=== PATIENT | female | born 1930 | race Caucasian/White ===

== ENCOUNTER 2017-11-10 13:55 | Inpatient (IN) | payer MEDICARE ==
[~2017-11-10] VITALS: Ht 160 cm; Wt 86.9 kg
[~2017-11-10 13:55] MED LIST: DOCU1CAP39 PO; HYDR-3516 PO; MAGN30S PO; WALKER WHEELS/F1 MIS
[2017-11-10 14:28] VITALS: BP 154/69; PULSE 75; RESP 18; TEMP 97.1; O2SAT 98
[2017-11-10 17:13] LABS: AUTOMATED NEUTROPHIL # 7.6 TH/MM3 (1.8-7.7); BASOPHIL # 0.1 TH/MM3 (0-0.2); BASOPHIL % 0.6 % (0.0-2.0); EOSINOPHIL # 0.3 TH/MM3 (0-0.4); EOSINOPHIL % 2.5 % (0.0-4.0); HEMATOCRIT 43.4 % (35.0-46.0); HEMOGLOBIN 14.4 GM/DL (11.6-15.3); LYMPHOCYTE # 3.4 TH/MM3 (1.0-4.8); MEAN CELL VOLUME 95.1 FL (80.0-100.0); MEAN CORPUSCULAR HEMOGLOBIN 31.5 PG (27.0-34.0); MEAN CORPUSCULAR HGB CONC 33.1 % (32.0-36.0); MEAN PLATELET VOLUME 9.7 FL (7.0-11.0); MONO % 9.7 % (0.0-8.0); MONOCYTE # 1.2 TH/MM3 (0-0.9); NEUT % 60.2 % (16.0-70.0); PLATELET COUNT 354 TH/MM3 (150-450); RED BLOOD COUNT 4.56 MIL/MM3 (4.00-5.30); RED CELL DISTRIBUTION WIDTH 15.5 % (11.6-17.2); WHITE BLOOD COUNT 12.6 TH/MM3 (4.0-11.0)
[2017-11-10 18:01] LABS: ALBUMIN 3.8 GM/DL (3.4-5.0); ALKALINE PHOSPHATASE 105 U/L (45-117); ALT (GPT) 35 U/L (10-53); AST (GOT) 65 U/L (15-37); BICARBONATE 29.8 MEQ/L (21.0-32.0); BLOOD UREA NITROGEN 39 MG/DL (7-18); CALCIUM 9.8 MG/DL (8.5-10.1); CHLORIDE 89 MEQ/L (98-107); CREATININE 1.92 MG/DL (0.50-1.00); GLOMERULAR FILTRATION RATE 25 ML/MIN (>89); GLUCOSE,RANDOM 162 MG/DL (74-106); SODIUM (NA) 133 MEQ/L (136-145); TOTAL BILIRUBIN ADULT 0.3 MG/DL (0.2-1.0); TOTAL PROTEIN 8.5 GM/DL (6.4-8.2)
[2017-11-10 18:46] VITALS: BP 173/76; PULSE 79; RESP 22; O2SAT 99
[2017-11-10 18:49] VITALS: O2SAT 98
[2017-11-10] MEDS ORDERED: ALUMINUM/MAGNESIUM/SIMETH 30 ML CUP PO ONE (19:00)
[2017-11-10] MEDS ORDERED: FAMOTIDINE 20 MG TAB PO ONE (19:00)
--- NOTE | 2017-11-10 19:20 | RADRPT ---
EXAM DATE/TIME: 11/10/2017 19:07 [place] COMPARISON: CHEST SINGLE AP, October 14, 2017, 11:52. INDICATIONS : Short of breath. MEDICAL HISTORY : None. SURGICAL HISTORY : None. ENCOUNTER: Initial ACUITY: 1 day PAIN SCORE: 0/10 LOCATION: Bilateral chest FINDINGS: A single view of the chest demonstrates the lungs to be symmetrically aerated without evidence of mas s, infiltrate or effusion. The cardiomediastinal contours are unremarkable. Osseous structures are intact. CONCLUSION: No acute disease. Juan Carlos Torres MD on November 10, 2017 at 19:18 Board Certified Radiologist. This report was verified electronically.
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
[2017-11-10] MEDS ORDERED: RANI150T PO (19:34)
[2017-11-10] MEDS ORDERED: POTA-163 PO (19:34)
[2017-11-10] MEDS ORDERED: ONDA4TAB7 SL (19:34)
[2017-11-10] MEDS ORDERED: SODIUM CHLOR 0.9% 1000 ML INJ 1,000 ML IV SCH ×2 (19:45→21:10)
[2017-11-10] MEDS ORDERED: POTASSIUM CHLORIDE 25 MEQ EFFERVESCENT TAB PO ONE (19:45)
[2017-11-10] MEDS ORDERED: POTASSIUM CHLOR 20 MEQ PREMIX 100 ML IV SCH (19:45)
[2017-11-10 20:00] VITALS: BP 174/72; PULSE 80; RESP 20; TEMP 97.2; O2SAT 95
[2017-11-10 20:56] LABS: TROPONIN I 0.96 NG/ML (0.02-0.05)
[2017-11-10] MEDS ORDERED: MAGNESIUM HYDROXIDE SUSP 30 ML CUP PO PRN (21:15)
[2017-11-10] MEDS ORDERED: NALOXONE HCL 0.4 MG/ML AMP IV PUSH PRN (21:15)
[2017-11-10] MEDS ORDERED: BISACODYL 10 MG SUPP RECTAL PRN (21:15)
[2017-11-10] MEDS ORDERED: ACETAMINOPHEN 325 MG TAB PO PRN (21:15)
[2017-11-10] MEDS ORDERED: SODIUM CHLORIDE 0.9% FLUSH 10 ML FLUSH IV FLUSH PRN (21:15)
[2017-11-10] MEDS ORDERED: LACTULOSE SYRUP 20 GM/30 ML CUP PO PRN (21:15)
[2017-11-10] MEDS ORDERED: SENNOSIDES 8.6 MG TAB PO PRN (21:15)
[2017-11-10] MEDS ORDERED: HEPARIN SODIUM - IV 10,000 UNITS/10 ML VIAL IV PUSH ONE (21:15)
[2017-11-10] MEDS ORDERED: ASPIRIN 325 MG TAB PO SCH (21:15)
[2017-11-10] MEDS ORDERED: HEPARIN-D5W 25,000 U/250 ML 250 ML IV PRN (21:15)
--- NOTE | 2017-11-10 21:25 | HHI.HP ---
[facility] Service [facility] Primary Care Physician Jen Hernandez MD Admission Diagnosis Syncope; Hypokalemia; EKG Abnormality Diagnoses: Travel History International Travel<30 Days: No Contact w/Intl Traveler <30 Da: No Traveled to Known Affected Are: No History of Present Illness 87-year-old female with no significant past medical history presents to the emergency department for evaluation of severe nausea and vomiting. The patient reports that she has had nausea for the past 3 months. She denies any associated abdominal pain. Endorses a nonbloody nonbilious emesis 3 over the past 2 days. She states that she has only been able to eat cheese and crackers and tea. She denies any chest pain or shortness of breath. No fever/chills. No diarrhea. No lateralizing signs/symptoms. Patient reports she takes no medication on a daily basis and has no past medical problems. Review of Systems Except as stated in HPI: all other systems reviewed are Neg Past Family Social History Past Medical History None Past Surgical History Cholecystectomy Reported Medications Reported Meds & Active Scripts Active Potassium Chloride ER (Potassium Chloride) 20 Meq Tab 20 Meq PO BID 7 Days Ranitidine (Ranitidine HCl) 150 Mg Tab 150 Mg PO BID Ondansetron Odt 4 Mg Tab 4 Mg SL Q8HR PRN Allergies: Coded Allergies: codeine (Verified Allergy, Severe, 11/10/17) "just don't aggree with me" Family History Patient does not know Social History Denies alcohol, tobacco and illicit drugs Physical Exam Vital Signs Vital Signs Date Time Temp Pulse Resp B/P (MAP) Pulse Ox O2 Delivery O2 Flow Rate FiO2 11/10/17 18:49 98 Room Air 11/10/17 18:46 79 22 173/76 (108) 99 Room Air 11/10/17 14:28 97.1 75 18 154/69 (97) 98 Physical Exam GENERAL: female sitting up in bed SKIN: No rashes, ecchymoses or lesions. Cool and dry. HEAD: Atraumatic. Normocephalic. No temporal or scalp tenderness. EYES: Pupils equal round and reactive. Extraocular motions intact. No scleral icterus. No injection or drainage. ENT: Nose without bleeding, purulent drainage or septal hematoma. Throat without erythema, tonsillar hypertrophy or exudate. Uvula midline. Airway patent. NECK: Trachea midline. No JVD or lymphadenopathy. Supple, nontender, no meningeal signs. CARDIOVASCULAR: Regular rate and rhythm without murmurs, gallops, or rubs. RESPIRATORY: Clear to auscultation. Breath sounds equal bilaterally. No wheezes , rales, or rhonchi. GASTROINTESTINAL: Abdomen soft, non-tender, nondistended. No hepato-splenomegaly , or palpable masses. No guarding. MUSCULOSKELETAL: Extremities without clubbing, cyanosis, or edema. No joint tenderness, effusion, or edema noted. No calf tenderness. NEUROLOGICAL: Awake and alert. Cranial nerves II through XII intact. Motor and sensory grossly within normal limits. Normal speech. Laboratory Laboratory Tests Test 11/10/17 15:52 11/10/17 20:06 White Blood Count 12.6 Red Blood Count 4.56 Hemoglobin 14.4 Hematocrit 43.4 Mean Corpuscular Volume 95.1 Mean Corpuscular Hemoglobin 31.5 Mean Corpuscular Hemoglobin Concent 33.1 Red Cell Distribution Width 15.5 Platelet Count 354 Mean Platelet Volume 9.7 Neutrophils (%) (Auto) 60.2 Lymphocytes (%) (Auto) 27.0 Monocytes (%) (Auto) 9.7 Eosinophils (%) (Auto) 2.5 Basophils (%) (Auto) 0.6 Neutrophils # (Auto) 7.6 Lymphocytes # (Auto) 3.4 Monocytes # (Auto) 1.2 Eosinophils # (Auto) 0.3 Basophils # (Auto) 0.1 CBC Comment DIFF FINAL Differential Comment Blood Urea Nitrogen 39 Creatinine 1.92 Random Glucose 162 Total Protein 8.5 Albumin 3.8 Calcium Level 9.8 Alkaline Phosphatase 105 Aspartate Amino Transf (AST/SGOT) 65 Alanine Aminotransferase (ALT/SGPT) 35 Total Bilirubin 0.3 Sodium Level 133 Potassium Level 2.9 Chloride Level 89 Carbon Dioxide Level 29.8 Anion Gap 14 Estimat Glomerular Filtration Rate 25 Lipase 188 Magnesium Level 2.0 Troponin I 0.96 Result Diagram: 11/10/17 1552 11/10/172 Caprini VTE Risk Assessment Caprini VTE Risk Assessment: Mod/High Risk (score >= 2) Caprini Risk Assessment Model Point Value = 1 Point Value = 2 Point Value = 3 Point Value = 5 Age 41-60 Minor surgery BMI > 25 kg/m2 Swollen legs Varicose veins or History of unexplained or recurrent spontaneous Oral contraceptives or hormone replacement Sepsis (< 1 month) Serious lung disease, including pneumonia (< 1 month) Abnormal pulmonary function Acute myocardial infarction Congestive heart failure (< 1 month) History of inflammatory bowel disease Medical patient at bed rest Age 61-74 Arthroscopic surgery Major open surgery (> 45 min) Laparoscopic surgery (> 45 min) Malignancy Confined to bed (> 72 hours) Immobilizing plaster cast Central venous access Age >= 75 History of VTE Family history of VTE Factor V Leiden Prothrombin [id number] Lupus anticoagulant Anticardiolipin antibodies Elevated serum homocysteine Heparin-induced thrombocytopenia Other congenital or acquired thrombophilia Stroke (< 1 month) Elective arthroplasty Hip, pelvis, or leg fracture Acute spinal cord injury (< 1 month) Prophylaxis Regimen Total Risk Factor Score Risk Level Prophylaxis Regimen 0-1 Low Early ambulation 2 Moderate Order ONE of the following: *Sequential Compression Device (SCD) *Heparin 5000 units SQ BID 3-4 Higher Order ONE of the following medications: *Heparin 5000 units SQ TID *Enoxaparin/Lovenox 40 mg SQ daily (WT < 150 kg, CrCl > 30 mL/min) *Enoxaparin/Lovenox 30 mg SQ daily (WT < 150 kg, CrCl > 10-29 mL/min) *Enoxaparin/Lovenox 30 mg SQ BID (WT < 150 kg, CrCl > 30 mL/min) AND/OR *Sequential Compression Device (SCD) 5 or more Highest Order ONE of the following medications: *Heparin 5000 units SQ TID (Preferred with Epidurals) *Enoxaparin/Lovenox 40 mg SQ daily (WT < 150 kg, CrCl > 30 mL/min) *Enoxaparin/Lovenox 30 mg SQ daily (WT < 150 kg, CrCl > 10-29 mL/min) *Enoxaparin/Lovenox 30 mg SQ BID (WT < 150 kg, CrCl > 30 mL/min) AND *Sequential Compression Device (SCD) Assessment and Plan Assessment and Plan Assessment/plan: 1. NSTEMI Initial troponin 0.96 EKG shows normal sinus rhythm, pulse 77, with T-wave inversion in leads I-II and V2-V6, ST segment elevations or depressions Serial troponin/EKGs Heparin drip Cardiology consulted, appreciate recommendations Patient denies any chest pain or associated shortness of breath 2. Nausea/vomiting May be atypical chest pain presentation Zofran Consider CT of the abdomen/pelvis if symptoms do not improve 3. MARY ANN BUN/creatinine 39/1.92 Baseline 0.87 on 10/16/17 May be secondary to decreased by mouth intake IV fluids Monitor renal function 4. Hypokalemia Potassium 2.9 Status post by mouth and IV replacement Follow-up BMP FEN NPO NS + 20 K at 100 cc/hr Electrolytes: As above Heparin drip Physician Certification 2 Midnight Certification Type: Admission for Inpatient Services Order for Inpatient Services The services are ordered in accordance with Medicare regulations or non- Medicare payer requirements, as applicable. In the case of services not specified as inpatient-only, they are appropriately provided as inpatient services in accordance with the 2-midnight benchmark. Estimated LOS (days): 2 2 days is the estimated time the patient will need to remain in the hospital, assuming treatment plan goals are met and no additional complications. Post-Hospital Plan: Not yet determined Marva Fernandes MD Nov 10, 2017 21:25
[2017-11-11] VITALS (12 sets, daily range): BP systolic 142–172; BP diastolic 65–80; PULSE 67–102; RESP 18–20; TEMP 96.3–98.5; O2SAT 92–98
[2017-11-11] MEDS: NS + KCL 20 MEQ INJ 1,000 ML IV SCH ×3 (00:10→18:40)
[2017-11-11 03:03] LABS: AUTOMATED NEUTROPHIL # 5.2 TH/MM3 (1.8-7.7); BASOPHIL % 0.4 % (0.0-2.0); EOSINOPHIL # 0.3 TH/MM3 (0-0.4); EOSINOPHIL % 3.4 % (0.0-4.0); HEMATOCRIT 37.9 % (35.0-46.0); HEMOGLOBIN 12.8 GM/DL (11.6-15.3); LYMPH % 34.9 % (9.0-44.0); LYMPHOCYTE # 3.4 TH/MM3 (1.0-4.8); MEAN CELL VOLUME 92.2 FL (80.0-100.0); MEAN CORPUSCULAR HEMOGLOBIN 31.2 PG (27.0-34.0); MEAN CORPUSCULAR HGB CONC 33.8 % (32.0-36.0); MEAN PLATELET VOLUME 8.5 FL (7.0-11.0); MONO % 8.2 % (0.0-8.0); MONOCYTE # 0.8 TH/MM3 (0-0.9); NEUT % 53.1 % (16.0-70.0); PLATELET COUNT 363 TH/MM3 (150-450); RED BLOOD COUNT 4.11 MIL/MM3 (4.00-5.30); RED CELL DISTRIBUTION WIDTH 15.1 % (11.6-17.2); WHITE BLOOD COUNT 9.8 TH/MM3 (4.0-11.0)
[2017-11-11 03:11] LABS: INTERNATIONAL NORMALIZED RATIO 1.1 RATIO; PROTHROMBIN TIME - PATIENT 10.7 SEC (9.8-11.6)
[2017-11-11] MEDS ORDERED: HEPARIN SODIUM - IV 10,000 UNITS/10 ML VIAL IV PUSH PRN ×2 (03:15)
[2017-11-11 03:33] LABS: TROPONIN I 0.8 NG/ML (0.02-0.05)
[2017-11-11 03:57] LABS: BICARBONATE 32.8 MEQ/L (21.0-32.0); CREATININE 1.23 MG/DL (0.50-1.00)
[2017-11-11] MEDS ORDERED: SODIUM CHLORIDE 0.9% FLUSH 10 ML FLUSH IV FLUSH SCH (09:00)
[2017-11-11 09:03] LABS: TROPONIN I 0.56 NG/ML (0.02-0.05)
[2017-11-11] MEDS: DOCUSATE SODIUM 50 MG/SENNA 8.6 MG TAB PO SCH ×2 (09:12→20:46)
[2017-11-11] MEDS ORDERED: HEPARIN-NS/PF FLUSH BAG 2,000 ML IV FLUSH ONE (12:31)
[2017-11-11] MEDS ORDERED: MIDAZOLAM HCL 2 MG/2 ML VIAL ONE (12:50)
[2017-11-11] MEDS ORDERED: HEPARIN SODIUM - IV 10,000 UNITS/10 ML VIAL ONE (13:09)
--- NOTE | 2017-11-11 13:17 | EKG ---
Date Performed: 11/10/2017 Time Performed: 19:37:06 PTAGE: 87 years EKG: Sinus rhythm MARKED ST-T WAVE ABNORMALITIES SUGGETIVE OF A CENTRAL NEUROLOGICAL EVENT OR NON ST SEGMENT ELEVATION MYOCARDIAL INFARCTION. ABNORMAL ECG Compared to PREVIOUS TRACING , these ST-T wave changes are new. Clinical correlation is needed. PREVI OUS TRACING 01/23/1997 23.00 DOCTOR: Roby Oconnell Interpretating Date/Time 11/11/2017 13:16:46
[2017-11-11] MEDS ORDERED: TIROFIBAN INFUSION INJ 0 ML IV ONE (13:23)
[2017-11-11] MEDS ORDERED: CLOPIDOGREL 300 MG TAB ONE ×2 (13:24→13:38)
--- NOTE | 2017-11-11 13:43 | CATHPROC ---
[employer] HIS Report Study Information Study Number Admission Scheduled Start Study Start [id number] Nov 10 2017 8:42PM 11/11/2017 Nov 11 2017 12:24PM [place] Service Cardiac Catheterization Admit Source Facility Department Emergency department [facility] - Lubrication Worker Physician and Clinical Staff Initial Alistair Hernandez Take Out Waiter Kristina Castillo BSN Take Out Waiter Kelsey Moreau,RN Recorder Renetta Rodriguez,RT(R) [place] [facility] RCIS(BS) Procedures Performed Procedure Location (Site) Vessel Name Coronary Angiograms RCA Right Coronary L Heart Cath LV Gram-hand inj. LV LV Ventricle Stent CIRC Dist CIRC Stent CIRC Mid CIRC Wire insertion Fem Art (right) Femoral Art Equipment Time Superintendent Generating Plant Description Size Mfg Part Number Used/Scraped [id number] 13:09 [employer]IPS [employer] WIRE, ASAHI PROWATER 180CM 180CM Used *[id number] 13:09 [employer]ILLIPS [employer] WIRE, ASAHI PROWATER 180CM 180CM Used *[id number] TRANSDUCER, TRUWAVE [id number] 13:00 MCWILLIAMS GLASER * Used W/STOCKCOCK *[id number] [id number] *[id number] 538-421 *[id number] [id number] *[id number] *[id number] *[id number] 13:00 Magix INDUSTRIES PACK, CCL CUSTOM * Used *[id number] 13:00 Magix PACER PEN, SKIN DUAL W/ RULER * Used *[id number] 13:23 MEDTRONIC STENT, 3.0 12 INTEGRITY 3.0 12 Used *[id number] 13:10 MEDTRONIC STENT, 3.5 12 INTEGRITY 3.5 12 Used *[id number] [id number] 13:21 [employer]Spot MEDICAL 30 ACOSTA INDEFLATOR Used *[id number] 13:10 [employer] MEDICAL SHEATH, FR6.5 PRELUDE 11CM FR 6.5 038ACT Used *[id number] 13:00 [employer] MEDICAL WIRE, 3MMJ .035 180CM 180CM Used *[id number] 13:00 NAMIC MANIFOLD, 4 PORT * Used *[id number] 13:00 NYCOMED OMNIPAQUE, 350 MG, 150ML 150ML [id number] Used [id number] 13:00 GHEENS MEDICAL BLANKET,WARM AIR CCL * Used *[id number] 13:00 TERUMO MEDICAL SHEATH, FR4 TERUMO (10CM) FR 4 Used *[id number] Equipment Model, Serial, Lot Number and Expiration Data Description Model Number Serial Number Lot Number Expiration Date STENT, 3.0 12 INTEGRITY [id number] 04-20-2019 STENT, 3.5 12 INTEGRITY [id number] 01-12-2018 History: Allergies Allergy Reaction codeine History: Risk Factors Family History of Hypertension Dyslipidemia Previous [place] Previous Heart Failure Premature CAD No No No No No Prior Valve Prior PCI Prior CABG Surgery No No No Cerebrovascular Peripheral Artery Chronic Lung On Dialysis Diabetes Disease Disease Disease No No No No No History: Symptoms/Diagnosis Selection Items Syncope History: Stress Tests Stress or Imaging Studies Performed No History: Other Current Smoker Method Quit Packs a Day Years Used Pack Years No Cigarettes 25 Years Ago 1 40 40 Labs Hgb (g/dl) Hct (%) WBC (l/cumm) Platelets (thousands) 11.60-17.00 35.00-51.00 4.00-11.00 150.00-450.00 12.8 37.9 9.8 363 Glucose (mg/dl) BUN (mg/dl) Creatinine (mg/dl) BUN:Creatinine (1:x) 74.00-106.00 7.00-18.00 0.50-1.30 10.00-20.00 147 33 1.2 27.5 Na (meq/l) K (meq/l) 136.00-145.00 3.50-5.10 139 3 INR (PTT:PT) 0.90-1.10 1.1 Troponin I (ng/ml) CPK (u/l) CPK-MB (ng/ML) 0.02-0.05 26.00-308.00 0.50-3.60 0.56 274 Not Drawn Medication Medication Total Dose (Bolus/Oral) Medication Total Dosage/Unit 1% XYLOCAINE 20 mL FENTANYL 62.5 mcg HEPARIN 5200 units PLAVIX 600 mg VERSED 1 mg Medications (Bolus/Oral) Medication Time Given Dosage/Unit Administered By Reason VERSED 11/11/2017 12:51:48 PM 1 mg Hesher, Kelsey 1 mg VERSED given in lab by Hesher, Kelsey, RN in Left Antecubital via Peripheral IV. Ordered by Alistair Evangelista. FENTANYL 11/11/2017 12:52:05 PM 25 mcg Kelsey Moreau 25 mcg FENTANYL given in lab by Kelsey Moreau RN in Left Antecubital via Peripheral IV. Ordered by Alistair Jacobs. 1% XYLOCAINE 11/11/2017 12:59:02 PM 20 mL Alistair Jacobs 20 mL 1% XYLOCAINE given in lab by Alistair Jacobs in Right Groin via Subcutaneous. Ordered by Alistair Stearns. FENTANYL 11/11/2017 1:07:43 PM 12.5 mcg [place] 12.5 mcg FENTANYL given in lab by Kelsey Moreau RN in Left Antecubital via Peripheral IV. Ordered Alistair Rizvi. HEPARIN 11/11/2017 1:10:27 PM 5200 units Kelsey Moreau 5200 units HEPARIN given in lab by Kelsey Moreau RN in Left Antecubital via Peripheral IV. Ordered by Alistair Jacobs. FENTANYL 11/11/2017 1:15:08 PM 12.5 mcg Prieto, Kelsey 12.5 mcg FENTANYL given in lab by Kelsey Moreau RN in Left Antecubital via Peripheral IV. Ordered Alistair Rizvi. FENTANYL 11/11/2017 1:26:40 PM 12.5 mcg Hesher, Kelsey 12.5 mcg FENTANYL given in lab by Kelsey Moreau RN in Left Antecubital via Peripheral IV. Ordered Alistair Rizvi. PLAVIX 11/11/2017 1:40:29 PM 600 mg Kelsey Moreau 600 mg PLAVIX given in lab by Kelsey Moreau, AILYN via Oral. Ordered by Alistair Jacobs. Medication (Drip) Medication Time Given Dosage/Unit Concentration/Unit Diluent (ml) Solution HEPARIN DRIP STOPPED 11/11/2017 12:35:07 PM 1000 units/hr 0 1000 units/hr HEPARIN DRIP STOPPED given by Kristina Castillo BSN in Left Antecubital via Peripher al IV. Pump/Drip Flow = 0 ml/hr using [Solution Name]. IV Solutions 11/11/2017 12:24:05 PM 50 mL (IV) NaCl .9 IV Solutions given in lab by Kristina Castillo BSN in Left Antecubital via Peripheral IV. Pump/Dri p Flow using NaCl .9. Initial Case Assessment Cardiovascular HR Rhythm NIBP Chest Pain 80 SR 178/71 0 Skin color Skin Normal Warm Dry Circulatory - Right Pulses Dorsalis Pedis Femoral 1 1 Scale (0,1,2,3,4,d) Circulatory - Left Pulses Dorsalis Pedis Femoral 1 1 Scale (0,1,2,3,4,d) Neurological State Oriented to time-place- Alert Moves all extremities person Respiration - General Respiration Rate SpO2 (%) (B/min) 19 98 Chronological Log Time Study Chronological Log 12:23:57 Patient arrived via Bed. 12:23:57 Patient Name, D.O.B, / Armband Verified By R.N. 12:23:58 Consent signed by the physician and the patient and verified by the Lubrication Worker staff. 12:23:58 Pre-op and post- op instructions given; patient acknowledges understanding of instructions . 12:23:59 Verbal Stimulation=2 Physical Stimulation=2 Airway=2 Respiration=2 TOTAL=8. (0=absent, 1=l imited, 2=present) 12:24:00 Presedation assessment performed by Lubrication Worker RN. 12:24:01 Immediate Presedation assesment performed by physician. 12:24:01 Patient has been NPO for More than 6Hrs. 12:24:02 Skin Breakdown- none per pt 12:24:03 Patient Warmer Placed on the Table. 12:24:03 Juarez Prominences Protected 12:24:05 A # 20 IV was noted in the Forearm (right). Grade = 0 12:24:05 A # 22 IV was noted in the Antecubital (left). Grade = 0 IV Solutions given in lab by Kristina Castillo BSN in Left Antecubital via Peripheral IV. P ump/Drip Flow using NaCl 12:24:05 .9. 12:24:06 History and physical on the chart or being dictated. 1000 units/hr HEPARIN DRIP STOPPED given by Kristina Castillo BSN in Left Antecubital via P eripheral IV. 12:35:07 Pump/Drip Flow = 0 ml/hr using [Solution Name]. 12:35:45 Reference ECG taken Vitals capture started with the following parameters, Patient=Adult, Interval=5 min, Initial Pr slpdqa=730 mmHg, 12:36:30 Deflation Rate=5 mmHg, Cuff placed on Unknown 12:38:05 HR=73 bpm, KSSE=845/71 mmhg, SpO2=98.0 %, Resp=8 B/min 12:40:54 Bilateral groins prepped with 2% chlorhexidine, and draped after a 3 minute waiting time. 12:41:18 MD paged 12:41:38 MD responded 12:42:32 Pressure channel 1 zeroed. 12:43:00 HR=74 bpm, RESI=914/74 mmhg, SpO2=98.0 %, Resp=9 B/min Assessment: Initial Case, HR=80 BPM, Rhythm=SR, DCCZ=653/71 mmhg, Chest Pain=0, Color=Normal, S kin = Warm, Dry Right Pulses: Nimesh Ped=1, Femoral=1 12:45:51 Left Pulses: Nimesh Ped=1, Femoral=1 Neurological: State=Alert, Ox3, GUZMAN Respiration: Resp=19 B/min, SpO2=98 % 12:47:32 HR=83 bpm, JKYZ=603/54 mmhg, SpO2=98.0 %, Resp=14 B/min 12:48:20 MD arrived. 12:51:48 1 mg VERSED given in lab by Kelsey Moreau, RN in Left Antecubital via Peripheral IV. Order ed by Alistair Jacobs. 25 mcg FENTANYL given in lab by Kelsey Moreau, RN in Left Antecubital via Peripheral IV. Order ed by Arlene, 12:52:05 Alistair. 12:53:18 HR=80 bpm, ZFDT=036/73 mmhg, SpO2=96.0 %, Resp=11 B/min Time Out. Correct patient, correct procedure, correct physician, power injector not loaded with contrast with surgical 12:57:42 team present. Time Out Concurred by MD and individual staff in procedure. 12:58:01 Case Start 12:58:09 HR=76 bpm, MOWB=670/73 mmhg, SpO2=98 %, Resp=8 B/min 20 mL 1% XYLOCAINE given in lab by Alistair Jacobs in Right Groin via Subcutaneous. Ordered by Arlene, 12:59:02 Alistair. 12:59:23 Access site was Right Femoral Artery. 12:59:45 A SHEATH, FR4 TERUMO (10CM) FR 4 was advanced into the Fem Art (right) using the Percutaneo us technique. 13:00:04 Activated Clotting Time Drawn A JR 4.0 INFINITI CATHETER FR 4 was advanced over a wire. OMNIPAQUE, 350 MG, 150ML 150ML was us ed for 13:00:19 injections. 13:02:20 An injection in the Iliac R. Com. (R4) was made through the SHEATH, FR4 TERUMO (10CM) FR 4. 13:02:21 HR=79 bpm, ISYA=821/82 mmhg, SpO2=96.0 %, Resp=12 B/min Recorded Pressure: Ao, HR=79, Condition=Condition 1 13:02:22 (Aorta) Ao 152/72/105 13::34 Catheter was removed A MPA-2 INFINITI CATHETER FR 4 was advanced over a wire. OMNIPAQUE, 350 MG, 150ML 150ML was use d for 13:03:41 injections. 13:04:00 ACT (Normal Range 90-180) = 158 After removing the current catheter a JR 4.0 INFINITI CATHETER FR 4 was advanced over a WIRE, 3 MMJ .035 180CM 13:04:00 180CM. Recorded Pressure: LV, HR=79, Condition=Condition 1 13:05:05 (Left Ventricle) LV 174/5/16 13:05:08 The LV was manually injected with 8 cc's and visualized. OMNIPAQUE, 350 MG, 150ML 150ML use d. 13:05:52 The RCA was injected and visualized at various angles. OMNIPAQUE, 350 MG, 150ML 150ML used . After removing the current catheter a JL 4.0 INFINITI CATHETER FR 4 was advanced over a WIRE, 3 MMJ .035 180CM 13:06:34 180CM. 13:07:22 HR=78 bpm, CWBW=251/80 mmhg, SpO2=97.0 %, Resp=9 B/min 12.5 mcg FENTANYL given in lab by Kelsey Moreau, RN in Left Antecubital via Peripheral IV. Ord ered by Arlene, 13:07:43 Alistair. 13:: Catheter was removed A SHEATH, FR6.5 PRELUDE 11CM FR 6.5 was exchanged in the Fem Art (right). This was necessary in order to 13:10:07 accomodate a larger catheter. 5200 units HEPARIN given in lab by Kelsey Moreau, AILYN in Left Antecubital via Peripheral IV. Or dered by Arlene, 13:10:27 Alistair. A XB 4.0 GUIDE CATHETER FR 6 was advanced over a wire. OMNIPAQUE, 350 MG, 150ML 150ML was used for 13:11:50 injections. 13:12:23 HR=84 bpm, HWLU=195/77 mmhg, SpO2=93.0 %, Resp=13 B/min After removing the current catheter a XB 3.5 GUIDE CATHETER FR 6 was advanced over a WIRE, 3MMJ .035 180CM 13:13:02 180CM. 12.5 mcg FENTANYL given in lab by Kelsey Moreau RN in Left Antecubital via Peripheral IV. Ord ered by Arlene, 13:15:08 Alistair. 13:15:10 A WIRE, ASAnextsocial PROWATER 180CM 180CM was inserted via Fem Art (right). Recorded Pressure: Ao, HR=81, Condition=Condition 1 13:15:33 (Aorta) Ao 155/55/93 13:17:14 Activated Clotting Time Drawn 13:17:18 HR=84 bpm, COIP=665/95 mmhg, SpO2=96.0 %, Resp=18 B/min 13:18:04 Interventional wire has crossed the lesion An STENT, 3.5 12 INTEGRITY 3.5 12 Bare Metal Stent was inserted through a XB 3.5 GUIDE CATHETER FR 6 over a 13:20:09 WIRE, ASAHI PROWATER 180CM 180CM. A STENT, 3.5 12 INTEGRITY 3.5 12 was deployed using a 30 ACOSTA INDEFLATOR at 12 atmospheres for 1 2 seconds in 13:20:36 the CIRC Mid. 13:22:07 ACT (Normal Range 90-180) = 248 13:23:08 HR=91 bpm, DJDX=058/78 mmhg, SpO2=95 %, Resp=13 B/min An STENT, 3.0 12 INTEGRITY 3.0 12 Bare Metal Stent was inserted through a XB 3.5 GUIDE CATHETER FR 6 over a 13:24:16 WIRE, ASAHI PROWATER 180CM 180CM. A STENT, 3.0 12 INTEGRITY 3.0 12 was deployed using a 30 ACOSTA INDEFLATOR at 10 atmospheres for 1 5 seconds in 13:25:03 the CIRC Dist. 13:26:10 Wire removed 13:26:12 Catheter was removed 13::26 Case End 12.5 mcg FENTANYL given in lab by Kelsey Moreau, RN in Left Antecubital via Peripheral IV. Ord ered by Arlene, 13:26:40 Alistair. 13:26:44 In the Fem Art (right) the SHEATH, FR6.5 PRELUDE 11CM FR 6.[address] by Alistair Sanders. 13:26:51 Sterile dressing applied to site 13:26:52 No case complications noted. 13:27:28 HR=93 bpm, YHIX=272/79 mmhg, SpO2=93.0 %, Resp=14 B/min 13:28:07 Cine recording checked. 13:28:11 Bedside Report will be given. 13:28:12 Implantable Device card placed in patient's chart. 13:28:16 Report called to floor. 13:28:18 A Left Heart Cath was performed. 13:33:04 Vitals capture stopped. 13:35:00 Patient moved to stretcher 13:40:29 600 mg PLAVIX given in lab by Kelsey Moreau, AILYN via Oral. Ordered by Alistair Jacobs. End Study - Contrast Media Used In Study Contrast Total Opened (mL) Total Used (mL) Total Wasted (mL) Omnipaque 100 100 0 End Study - Maximum Contrast Load Max Contrast Load (mL) 361.7 End Study - Radiation Exposure Fluoro Time (minutes) 8.9 End Study - Patient Disposition Complications Transferred To Interventional Outcome No Telemetry Bed successful
[2017-11-11] MEDS ORDERED: MISC INFORMATION XX ONE (13:45)
[2017-11-11] MEDS ORDERED: SODIUM CHLORIDE 0.9% FLUSH 10 ML FLUSH IV FLUSH PRN (13:45)
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
[2017-11-11] MEDS ORDERED: IOHEXOL 350 MG/ML 100 ML BTL (for Cath Lab) OTHER ONE (14:27)
[2017-11-11] MEDS ORDERED: BACITRACIN OINT 0.9 GM PKT TOP ONE (15:00)
[2017-11-11] MEDS ORDERED: CLOPIDOGREL 300 MG TAB PO ONE (15:00)
[2017-11-11] MEDS: MORPHINE SULFATE 2 MG/ML INJ IV PUSH PRN (16:52)
[2017-11-11] MEDS ORDERED: POTASSIUM CHLORIDE 10 MEQ CONTROLLED RELEASE TAB PO ONE (18:00)
[2017-11-11] MEDS ORDERED: NITROGLYCERIN-DEXTROSE 5% 250 ML for hypertension IV PRN (20:00)
[2017-11-11] MEDS: SODIUM CHLORIDE 0.9% FLUSH 10 ML FLUSH IV FLUSH SCH (20:46)
[2017-11-12] VITALS (21 sets, daily range): BP systolic 148–186; BP diastolic 65–81; PULSE 72–102; RESP 18–24; TEMP 97.8–98.3; O2SAT 92–99
[2017-11-12 04:47] LABS: AUTOMATED NEUTROPHIL # 4.3 TH/MM3 (1.8-7.7); BASOPHIL % 0.5 % (0.0-2.0); EOSINOPHIL # 0.3 TH/MM3 (0-0.4); EOSINOPHIL % 4.2 % (0.0-4.0); HEMATOCRIT 36.1 % (35.0-46.0); LYMPH % 20.9 % (9.0-44.0); LYMPHOCYTE # 1.4 TH/MM3 (1.0-4.8); MEAN CELL VOLUME 94.3 FL (80.0-100.0); MEAN CORPUSCULAR HEMOGLOBIN 31.5 PG (27.0-34.0); MEAN CORPUSCULAR HGB CONC 33.4 % (32.0-36.0); MEAN PLATELET VOLUME 8.5 FL (7.0-11.0); MONO % 11.1 % (0.0-8.0); MONOCYTE # 0.8 TH/MM3 (0-0.9); NEUT % 63.3 % (16.0-70.0); PLATELET COUNT 299 TH/MM3 (150-450); RED BLOOD COUNT 3.83 MIL/MM3 (4.00-5.30); RED CELL DISTRIBUTION WIDTH 15.5 % (11.6-17.2); WHITE BLOOD COUNT 6.8 TH/MM3 (4.0-11.0)
[2017-11-12] MEDS: NS + KCL 20 MEQ INJ 1,000 ML IV SCH ×2 (05:04→14:51)
[2017-11-12 05:14] LABS: ALBUMIN 3.2 GM/DL (3.4-5.0); BICARBONATE 28.2 MEQ/L (21.0-32.0); CALCIUM 8.3 MG/DL (8.5-10.1); CHOLESTEROL/ HDL RATIO 5.11 RATIO; CREATININE 0.74 MG/DL (0.50-1.00); DIRECT BILIRUBIN ADULT 0.1 MG/DL (0.0-0.2); HDL CHOLESTEROL 42.6 MG/DL (40.0-60.0); INDIRECT BILIRUBIN 0.3 MG/DL (0.0-0.8); TOTAL BILIRUBIN ADULT 0.4 MG/DL (0.2-1.0); TOTAL PROTEIN 6.9 GM/DL (6.4-8.2)
--- NOTE | 2017-11-12 07:26 | HHI.PR ---
Subjective Remarks late entry - patient seen on 11/11/17 Patient sp recent cardiac catheterization. Denies cp c/o right groin pain Objective Vitals Vital Signs Date Time Temp Pulse Resp B/P (MAP) Pulse Ox O2 Delivery O2 Flow Rate FiO2 11/12/17 03:00 98.2 82 20 149/65 (93) 99 11/12/17 02:00 77 11/12/17 01:00 84 11/12/17 00:00 102 11/11/17 23:00 98.0 79 20 150/67 (94) 97 11/11/17 23:00 80 11/11/17 22:00 82 11/11/17 21:00 86 11/11/17 20:00 102 11/11/17 19:00 98.3 81 20 160/80 (106) 97 11/11/17 19:00 91 11/11/17 18:00 78 11/11/17 17:00 88 11/11/17 16:01 98.5 89 18 156/78 (104) 92 11/11/17 15:30 83 180/108 11/11/17 14:11 99 Room Air 11/11/17 12:00 97.7 67 18 172/72 (105) 98 11/11/17 08:00 96.7 71 18 144/65 (91) 95 11/11/17 08:00 75 I/O 11/11/17 11/11/17 11/11/17 11/12/17 11/12/17 11/12/17 07:00 15:00 23:00 07:00 15:00 23:00 Intake Total 240 ml 1140 ml Output Total 600 ml 575 ml Balance -360 ml 565 ml Intake Oral 240 ml 240 ml IV Total 900 ml Output Urine Total 600 ml 575 ml # Voids 2 # Bowel Movements 0 0 Result Diagram: 11/12/17 0427 11/12/17 0427 Imaging Last Impressions Chest X-Ray 11/10/17 0000 Signed Impressions: Service Date/Time: Friday, November 10, 2017 19:07 - CONCLUSION: No acute disease. Juan Carlos Torres MD Objective Remarks AAox3 nad clear lungs s1s2 RRR abdomen soft right groin without discoloration. A/P Problem List: (1) NSTEMI (non-ST elevated myocardial infarction) ICD Code: I21.4 - Non-ST elevation (NSTEMI) myocardial infarction (2) Nausea & vomiting ICD Code: R11.2 - Nausea with vomiting, unspecified Status: Acute (3) Hypokalemia ICD Code: E87.6 - Hypokalemia Status: Acute (4) Hyperglycemia ICD Code: R73.9 - Hyperglycemia, unspecified Status: Acute Assessment and Plan 1. NSTEMI Initial troponin 0.96 EKG showed normal sinus rhythm, pulse 77, with T-wave inversion in leads I-II and V2-V6, ST segment elevations or depressions Serial troponin/EKGs Heparin drip Cardiology consulted, appreciate recommendations Patient denies any chest pain or associated shortness of breath 11/11 Patient is sp cardiac cathetrization with 2 stent placements. heparin off. 2. Nausea/vomiting May be atypical chest pain presentation Zofran 11/11 nausea resolved. 3. MARY ANN BUN/creatinine 39/1.92 Baseline 0.87 on 10/16/17 May be secondary to decreased by mouth intake IV fluids Monitor renal function 11/11 MARY ANN resolved after IVf. Due to prerenal azotemia. Monitor BUN/Creatinine. 4. Hypokalemia Potassium 2.9 Status post by mouth and IV replacement Follow-up BMP 5. Hyperglycemia Likely stress related. No previous h/o diabetes. Place on SSI and monitor accuchecks check hba1c 6. Groin hematoma Patient developed small hematoma when groin sheath was being pulled. Resolved with compression of groin. Discharge Planning Dc pending cardiology clearance Jesse Cast MD Nov 12, 2017 07:26
[2017-11-12] MEDS: DOCUSATE SODIUM 50 MG/SENNA 8.6 MG TAB PO SCH ×2 (09:00→20:34)
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
[2017-11-12] MEDS: ONDANSETRON HCL 4 MG/2 ML VIAL IVP PRN ×3 (09:37→20:32)
--- NOTE | 2017-11-12 11:28 | EKG ---
Date Performed: 11/11/2017 Time Performed: 09:26:49 PTAGE: 87 years EKG: Sinus rhythm ST DEVIATION AND MARKED T-WAVE ABNORMALITY, CONSIDER ANTEROLATERAL ISCHEMIA ABNORMAL ECG PREVIOUS TRACING : 11/10/2017 19.37 Since the previous tracing, no significant change noted DOCTOR: Harrison Hernandez Interpretating Date/Time 11/12/2017 11:25:33
[2017-11-12] MEDS ORDERED: RAMIPRIL 2.5 MG CAP PO ONE (11:30)
[2017-11-12] MEDS ORDERED: CARVEDILOL 3.125 MG TAB PO ONE (11:30)
[2017-11-12] MEDS ORDERED: ATORVASTATIN 80 MG TAB PO ONE (11:30)
[2017-11-12] MEDS: ASPIRIN 81 MG CHEW TAB PO SCH (12:27)
[2017-11-12] MEDS: CLOPIDOGREL 75 MG TAB PO SCH (12:28)
[2017-11-12] MEDS: SODIUM CHLORIDE 0.9% FLUSH 10 ML FLUSH IV FLUSH SCH ×2 (12:29→20:33)
--- NOTE | 2017-11-12 12:30 | PD.CARD.PN ---
Subjective Subjective Remarks alert in nad, denies chest pain Objective Medications Current Medications Medications (Trade) Dose Ordered Sig/Leonides Route Start Time Stop Time Status Last Admin (Tylenol) 650 mg Q4H PRN PO 11/10/17 21:15 11/11/17 00:08 (Zofran Inj) 4 mg Q6H PRN IVP 11/10/17 21:15 11/12/17 09:37 (Narcan Inj) 0.4 mg UNSCH PRN IV PUSH 11/10/17 21:15 (Tiffany-Colace) 1 tab BID PO 11/11/17 09:00 11/11/17 20:46 (Milk Of Magnesia Liq) 30 ml Q12H PRN PO 11/10/17 21:15 (Senokot) 17.2 mg Q12H PRN PO 11/10/17 21:15 (Dulcolax Supp) 10 mg DAILY PRN RECTAL 11/10/17 21:15 (Lactulose Liq) 30 ml DAILY PRN PO 11/10/17 21:15 (Morphine Inj) 2 mg Q3H PRN IV PUSH 11/10/17 21:15 11/11/17 16:52 Potassium Chloride/Sodium Chloride 1,000 ml @ 100 mls/hr Q10H IV 11/10/17 21:30 11/12/17 05:04 (NS Flush) 2 ml UNSCH PRN IV FLUSH 11/11/17 13:45 (NS Flush) 2 ml BID IV FLUSH 11/11/17 21:00 11/11/17 20:46 (Aspirin Chew) 81 mg DAILY PO 11/12/17 09:00 (Plavix) 75 mg DAILY PO 11/12/17 09:00 Nitroglycerin/ Dextrose 250 ml @ 1.5 mls/hr TITRATE PRN IV 11/11/17 20:00 11/11/17 15:30 (Altace) 2.5 mg DAILY PO 11/13/17 09:00 (Coreg) 3.125 mg Q12HR PO 11/12/17 21:00 (Lipitor) 80 mg HS PO 11/12/17 21:00 Vital Signs / I&O Vital Signs Date Time Temp Pulse Resp B/P (MAP) Pulse Ox O2 Delivery O2 Flow Rate FiO2 11/12/17 07:47 Nasal Cannula 2.00 11/12/17 06:00 84 11/12/17 05:00 76 11/12/17 04:00 74 11/12/17 03:00 75 11/12/17 03:00 98.2 82 20 149/65 (93) 99 11/12/17 02:00 77 11/12/17 01:00 84 11/12/17 00:00 102 11/11/17 23:00 98.0 79 20 150/67 (94) 97 11/11/17 23:00 80 11/11/17 22:00 82 11/11/17 21:00 86 11/11/17 20:00 102 11/11/17 19:00 98.3 81 20 160/80 (106) 97 11/11/17 19:00 91 11/11/17 18:00 78 11/11/17 17:00 88 11/11/17 16:01 98.5 89 18 156/78 (104) 92 11/11/17 15:30 83 180/108 11/11/17 14:11 99 Room Air I/O 11/11/17 11/11/17 11/11/17 11/12/17 11/12/17 11/12/17 07:00 15:00 23:00 07:00 15:00 23:00 Intake Total 240 ml 1140 ml Output Total 600 ml 575 ml Balance -360 ml 565 ml Intake Oral 240 ml 240 ml IV Total 900 ml Output Urine Total 600 ml 575 ml # Voids 2 # Bowel Movements 0 0 Physical Exam GENERAL: SKIN: Warm and dry. HEAD: Normocephalic. EYES: No scleral icterus. No injection or drainage. NECK: Supple, trachea midline. No JVD or lymphadenopathy. CARDIOVASCULAR: Regular rate and rhythm without murmurs, gallops, or rubs. RESPIRATORY: Breath sounds equal bilaterally. No accessory muscle use. GASTROINTESTINAL: Abdomen soft, non-tender, nondistended. MUSCULOSKELETAL: No cyanosis, or edema. BACK: Nontender without obvious deformity. No CVA tenderness. Laboratory Laboratory Tests Test 11/12/17 04:27 White Blood Count 6.8 TH/MM3 Red Blood Count 3.83 MIL/MM3 Hemoglobin 12.0 GM/DL Hematocrit 36.1 % Mean Corpuscular Volume 94.3 FL Mean Corpuscular Hemoglobin 31.5 PG Mean Corpuscular Hemoglobin Concent 33.4 % Red Cell Distribution Width 15.5 % Platelet Count 299 TH/MM3 Mean Platelet Volume 8.5 FL Neutrophils (%) (Auto) 63.3 % Lymphocytes (%) (Auto) 20.9 % Monocytes (%) (Auto) 11.1 % Eosinophils (%) (Auto) 4.2 % Basophils (%) (Auto) 0.5 % Neutrophils # (Auto) 4.3 TH/MM3 Lymphocytes # (Auto) 1.4 TH/MM3 Monocytes # (Auto) 0.8 TH/MM3 Eosinophils # (Auto) 0.3 TH/MM3 Basophils # (Auto) 0.0 TH/MM3 CBC Comment DIFF FINAL Differential Comment Blood Urea Nitrogen 15 MG/DL Creatinine 0.74 MG/DL Random Glucose 152 MG/DL Total Protein 6.9 GM/DL Albumin 3.2 GM/DL Calcium Level 8.3 MG/DL Phosphorus Level 2.0 MG/DL Magnesium Level 2.0 MG/DL Alkaline Phosphatase 67 U/L Aspartate Amino Transf (AST/SGOT) 36 U/L Alanine Aminotransferase (ALT/SGPT) 30 U/L Total Bilirubin 0.4 MG/DL Direct Bilirubin 0.1 MG/DL Sodium Level 142 MEQ/L Potassium Level 3.3 MEQ/L Chloride Level 106 MEQ/L Carbon Dioxide Level 28.2 MEQ/L Anion Gap 8 MEQ/L Estimat Glomerular Filtration Rate 75 ML/MIN Indirect Bilirubin 0.3 MG/DL Total Creatine Kinase 186 U/L Triglycerides Level 153 MG/DL Cholesterol Level 218 MG/DL LDL Cholesterol 145 MG/DL HDL Cholesterol 42.6 MG/DL Cholesterol/HDL Ratio 5.11 RATIO Assessment and Plan Problem List: (1) CAD (coronary artery disease) ICD Codes: I25.10 - Atherosclerotic heart disease of [place] coronary artery without angina pectoris (2) NSTEMI (non-ST elevated myocardial infarction) ICD Codes: I21.4 - Non-ST elevation (NSTEMI) myocardial infarction Assessment and Plan 1.) CAD/NSTEMI - pod #1 pci bms lcx and om, chest pain free, continue aspirin and plavix, start lipitor 80 mg hs, altace 2.5 mg qd, coreg 3.125 mg bid; ok to dc from cv standpoint, f/u with me in office 11/15/17; d/w patient and her daughter ArleneAlistair MD Nov 12, 2017 12:30
--- NOTE | 2017-11-12 14:06 | HHI.PR ---
Subjective Remarks This is a pleasant 87 y/o Female with no significant Medical history who came to ER with severe nausea and vomit, nauseated for the last three months With Diagnosis of Non STEMI, coronary artery disease and syncope, had Bare Metal Stent of the mid left circumflex vessel and PCI bare stent of the distal left circumflex vessel. 11/11/17, Seen in her bedroom and she continues with Gastroesophageal symptoms, states was not seen by GI specialist wants to talk with GI specialist asked for consult. Objective Vital Signs Date Time Temp Pulse Resp B/P (MAP) Pulse Ox O2 Delivery O2 Flow Rate FiO2 11/12/17 07:47 Nasal Cannula 2.00 11/12/17 06:00 84 11/12/17 05:00 76 11/12/17 04:00 74 11/12/17 03:00 75 11/12/17 03:00 98.2 82 20 149/65 (93) 99 11/12/17 02:00 77 11/12/17 01:00 84 11/12/17 00:00 102 11/11/17 23:00 98.0 79 20 150/67 (94) 97 11/11/17 23:00 80 11/11/17 22:00 82 11/11/17 21:00 86 11/11/17 20:00 102 11/11/17 19:00 98.3 81 20 160/80 (106) 97 11/11/17 19:00 91 11/11/17 18:00 78 11/11/17 17:00 88 11/11/17 16:01 98.5 89 18 156/78 (104) 92 11/11/17 15:30 83 180/108 11/11/17 14:11 99 Room Air I/O 11/11/17 11/11/17 11/11/17 11/12/17 11/12/17 11/12/17 07:00 15:00 23:00 07:00 15:00 23:00 Intake Total 240 ml 1140 ml Output Total 600 ml 575 ml Balance -360 ml 565 ml Intake Oral 240 ml 240 ml IV Total 900 ml Output Urine Total 600 ml 575 ml # Voids 2 # Bowel Movements 0 0 Result Diagram: 11/12/17 0427 11/12/17 0427 Imaging Last Impressions Chest X-Ray 11/10/17 0000 Signed Impressions: Service Date/Time: Friday, November 10, 2017 19:07 - CONCLUSION: No acute disease. Juan Carlos Torres MD Procedures With Diagnosis of Non STEMI, coronary artery disease and syncope, had Bare Metal Stent of the mid left circumflex vessel and PCI bare stent of the distal left circumflex vessel. 11/11/17. Other Results Laboratory Tests Test 11/10/17 15:52 11/11/17 02:49 11/11/17 08:10 11/11/17 11:26 Lipase 188 U/L Prothrombin Time 10.7 SEC Prothromb Time International Ratio 1.1 RATIO Creatine Kinase MB 2.1 NG/ML Creatine Kinase MB % 0.8 % Troponin I 0.56 NG/ML Activated Partial Thromboplast Time 32.9 SEC Test 11/12/17 04:27 White Blood Count 6.8 TH/MM3 Red Blood Count 3.83 MIL/MM3 Hemoglobin 12.0 GM/DL Hematocrit 36.1 % Mean Corpuscular Volume 94.3 FL Mean Corpuscular Hemoglobin 31.5 PG Mean Corpuscular Hemoglobin Concent 33.4 % Red Cell Distribution Width 15.5 % Platelet Count 299 TH/MM3 Mean Platelet Volume 8.5 FL Neutrophils (%) (Auto) 63.3 % Lymphocytes (%) (Auto) 20.9 % Monocytes (%) (Auto) 11.1 % Eosinophils (%) (Auto) 4.2 % Basophils (%) (Auto) 0.5 % Neutrophils # (Auto) 4.3 TH/MM3 Lymphocytes # (Auto) 1.4 TH/MM3 Monocytes # (Auto) 0.8 TH/MM3 Eosinophils # (Auto) 0.3 TH/MM3 Basophils # (Auto) 0.0 TH/MM3 CBC Comment DIFF FINAL Differential Comment Blood Urea Nitrogen 15 MG/DL Creatinine 0.74 MG/DL Random Glucose 152 MG/DL Total Protein 6.9 GM/DL Albumin 3.2 GM/DL Calcium Level 8.3 MG/DL Phosphorus Level 2.0 MG/DL Magnesium Level 2.0 MG/DL Alkaline Phosphatase 67 U/L Aspartate Amino Transf (AST/SGOT) 36 U/L Alanine Aminotransferase (ALT/SGPT) 30 U/L Total Bilirubin 0.4 MG/DL Direct Bilirubin 0.1 MG/DL Sodium Level 142 MEQ/L Potassium Level 3.3 MEQ/L Chloride Level 106 MEQ/L Carbon Dioxide Level 28.2 MEQ/L Anion Gap 8 MEQ/L Estimat Glomerular Filtration Rate 75 ML/MIN Indirect Bilirubin 0.3 MG/DL Total Creatine Kinase 186 U/L Triglycerides Level 153 MG/DL Cholesterol Level 218 MG/DL LDL Cholesterol 145 MG/DL HDL Cholesterol 42.6 MG/DL Cholesterol/HDL Ratio 5.11 RATIO Objective Remarks GENERAL: No acute distress. Obesity. SKIN: No rashes, ecchymoses or lesions. Cool and dry. HEAD: Atraumatic. Normocephalic. No temporal or scalp tenderness. EYES: Pupils equal round and reactive. Extraocular motions intact. No scleral icterus. No injection or drainage. ENT: Nose without bleeding, purulent drainage or septal hematoma. Throat without erythema, tonsillar hypertrophy or exudate. Uvula midline. Airway patent. NECK: Trachea midline. No JVD or lymphadenopathy. Supple, nontender, no meningeal signs. CARDIOVASCULAR: Regular rate and rhythm without murmurs, gallops, or rubs. RESPIRATORY: Clear to auscultation. Breath sounds equal bilaterally. No wheezes , rales, or rhonchi. GASTROINTESTINAL: Abdomen soft, non-tender, nondistended. No hepato-splenomegaly , or palpable masses. No guarding. MUSCULOSKELETAL: Extremities without clubbing, cyanosis, or edema. No joint tenderness, effusion, or edema noted. No calf tenderness. NEUROLOGICAL: Awake and alert. Cranial nerves II through XII intact. Motor and sensory grossly within normal limits. Normal speech. Medications and IVs Current Medications Medications (Trade) Dose Ordered Sig/Leonides Route Start Time Stop Time Status Last Admin (Tylenol) 650 mg Q4H PRN PO 11/10/17 21:15 11/11/17 00:08 (Zofran Inj) 4 mg Q6H PRN IVP 11/10/17 21:15 11/12/17 09:37 (Narcan Inj) 0.4 mg UNSCH PRN IV PUSH 11/10/17 21:15 (Tiffany-Colace) 1 tab BID PO 11/11/17 09:00 11/11/17 20:46 (Milk Of Magnesia Liq) 30 ml Q12H PRN PO 11/10/17 21:15 (Senokot) 17.2 mg Q12H PRN PO 11/10/17 21:15 (Dulcolax Supp) 10 mg DAILY PRN RECTAL 11/10/17 21:15 (Lactulose Liq) 30 ml DAILY PRN PO 11/10/17 21:15 (Morphine Inj) 2 mg Q3H PRN IV PUSH 11/10/17 21:15 11/11/17 16:52 Potassium Chloride/Sodium Chloride 1,000 ml @ 100 mls/hr Q10H IV 11/10/17 21:30 11/12/17 05:04 (NS Flush) 2 ml UNSCH PRN IV FLUSH 11/11/17 13:45 (NS Flush) 2 ml BID IV FLUSH 11/11/17 21:00 11/12/17 12:29 (Aspirin Chew) 81 mg DAILY PO 11/12/17 09:00 11/12/17 12:27 (Plavix) 75 mg DAILY PO 11/12/17 09:00 11/12/17 12:28 Nitroglycerin/ Dextrose 250 ml @ 1.5 mls/hr TITRATE PRN IV 11/11/17 20:00 11/11/17 15:30 (Altace) 2.5 mg DAILY PO 11/13/17 09:00 (Coreg) 3.125 mg Q12HR PO 11/12/17 21:00 (Lipitor) 80 mg HS PO 11/12/17 21:00 A/P Assessment and Plan 1. Non STEMI, coronary artery disease and syncope, had Bare Metal Stent of the mid left circumflex vessel and PCI bare stent of the distal left circumflex vessel. 11/11/17, recommended to continue Aspirin and Plavix. at this time continue Nitroglycerine. EKG shows normal sinus rhythm, pulse 77, with T-wave inversion in leads I- II and V2-V6, ST segment elevations or depressions 2. Nausea/vomiting/GERD symptoms for the last three months not improving, asked for GI specialist consult. 3. MARY ANN Improved. 4. Hypokalemia continue replacement 5. obesity strongly recommended diet and exercise. DVT prophylaxis was on Heparin discontinued by hearing specialist. Discharge Planning Expected in one to two days. Andrew Sheikh MD Nov 12, 2017 14:06
[2017-11-12] MEDS ORDERED: POTASSIUM CHLORIDE 20 MEQ CONTROLLED RELEASE TAB PO ONE ×2 (16:00→19:00)
--- NOTE | 2017-11-12 16:28 | PD.CONS ---
HPI History of Present Illness This is a 87 year old obese female admitted on 11/10/17 with severe nausea and vomiting for approximately 3 months. Patient describes pain as epigastric up in the chest, denies any hematemesis, or no dysphasia or abdominal pain. Patient was also evaluated per cardiology had a cardiac catheter on 11/11/17 which required 2 metal stents. Patient is not complaining of any further chest pain, does describe a burning sensation after drinking fluids or trying to eat regular food. She has not had any vomiting in 5 days. Patient has a long- standing history of constipation in which she takes stool softeners. She had 2 normal brown formed BMs today, and states that she has never had any problems with diarrhea. Patient states never had a colonoscopy or EGD. She had a GI appointment outpatient next week, but was unable to control her symptoms at home. She has current hemoglobin of 14.4, WBC count 12.6, platelet count 254. Patient has been treated for hypokalemia 2.9, acute kidney injury, and non- STEMI 0.96 troponin on admission. Patient was placed on Plavix and aspirin 81 mg daily as of 11/11/17. (Juanita Santos) [facility] Past Medical History None Patient denies any hypertension no diabetes Past Surgical History Cholecystectomy Cardiac catheter on 11/11/17 with 2 metal stents placed. This admission (Juanita Santos) Coded Allergies: codeine (Verified Allergy, Severe, 11/10/17) "just don't aggree with me" Medications Last Impressions Chest X-Ray 11/10/17 0000 Signed Impressions: Service Date/Time: Friday, November 10, 2017 19:07 - CONCLUSION: No acute disease. Juan Carlos Torres MD Family History Patient does not know Social History Denies alcohol, tobacco and illicit drugs Patient is currently lives at home with her . (Juanita Santos) Review of Systems Gastrointestinal: COMPLAINS OF: Constipation (history of none now), Nausea, Vomiting (no vomiting and 5 days) (Juanita Santos) GI Exam Vitals I&O Vital Signs Date Time Temp Pulse Resp B/P (MAP) Pulse Ox O2 Delivery O2 Flow Rate FiO2 11/12/17 16:13 98.0 74 18 148/67 (94) 98 11/12/17 16:13 77 11/12/17 12:00 97.8 74 18 150/74 (99) 98 11/12/17 12:00 72 11/12/17 08:00 72 11/12/17 08:00 97.8 72 18 166/74 (104) 98 11/12/17 07:47 Nasal Cannula 2.00 11/12/17 06:00 84 11/12/17 05:00 76 11/12/17 04:00 74 11/12/17 03:00 75 11/12/17 03:00 98.2 82 20 149/65 (93) 99 11/12/17 02:00 77 11/12/17 01:00 84 11/12/17 00:00 102 11/11/17 23:00 98.0 79 20 150/67 (94) 97 11/11/17 23:00 80 11/11/17 22:00 82 11/11/17 21:00 86 11/11/17 20:00 102 11/11/17 19:00 98.3 81 20 160/80 (106) 97 11/11/17 19:00 91 11/11/17 18:00 78 11/11/17 17:00 88 I/O 11/11/17 11/11/17 11/11/17 11/12/17 11/12/17 11/12/17 07:00 15:00 23:00 07:00 15:00 23:00 Intake Total 240 ml 1140 ml Output Total 600 ml 575 ml Balance -360 ml 565 ml Intake Oral 240 ml 240 ml IV Total 900 ml Output Urine Total 600 ml 575 ml # Voids 2 # Bowel Movements 0 0 Imaging Last Impressions Chest X-Ray 11/10/17 0000 Signed Impressions: Service Date/Time: Friday, November 10, 2017 19:07 - CONCLUSION: No acute disease. Juan Carlos Torres MD Laboratory Test 11/12/17 04:27 White Blood Count 6.8 TH/MM3 Red Blood Count 3.83 MIL/MM3 Hemoglobin 12.0 GM/DL Hematocrit 36.1 % Mean Corpuscular Volume 94.3 FL Mean Corpuscular Hemoglobin 31.5 PG Mean Corpuscular Hemoglobin Concent 33.4 % Red Cell Distribution Width 15.5 % Platelet Count 299 TH/MM3 Mean Platelet Volume 8.5 FL Neutrophils (%) (Auto) 63.3 % Lymphocytes (%) (Auto) 20.9 % Monocytes (%) (Auto) 11.1 % Eosinophils (%) (Auto) 4.2 % Basophils (%) (Auto) 0.5 % Neutrophils # (Auto) 4.3 TH/MM3 Lymphocytes # (Auto) 1.4 TH/MM3 Monocytes # (Auto) 0.8 TH/MM3 Eosinophils # (Auto) 0.3 TH/MM3 Basophils # (Auto) 0.0 TH/MM3 CBC Comment DIFF FINAL Differential Comment Blood Urea Nitrogen 15 MG/DL Creatinine 0.74 MG/DL Random Glucose 152 MG/DL Total Protein 6.9 GM/DL Albumin 3.2 GM/DL Calcium Level 8.3 MG/DL Phosphorus Level 2.0 MG/DL Magnesium Level 2.0 MG/DL Alkaline Phosphatase 67 U/L Aspartate Amino Transf (AST/SGOT) 36 U/L Alanine Aminotransferase (ALT/SGPT) 30 U/L Total Bilirubin 0.4 MG/DL Direct Bilirubin 0.1 MG/DL Sodium Level 142 MEQ/L Potassium Level 3.3 MEQ/L Chloride Level 106 MEQ/L Carbon Dioxide Level 28.2 MEQ/L Anion Gap 8 MEQ/L Estimat Glomerular Filtration Rate 75 ML/MIN Indirect Bilirubin 0.3 MG/DL Total Creatine Kinase 186 U/L Triglycerides Level 153 MG/DL Cholesterol Level 218 MG/DL LDL Cholesterol 145 MG/DL HDL Cholesterol 42.6 MG/DL Cholesterol/HDL Ratio 5.11 RATIO Physical Examination HEENT: Pupils round and reactive to light; normocephalic; atraumatic; no jaundice. Obese NECK: Neck is supple, CHEST: Diminished breath sounds in her bases no audible rhonchi CARDIAC: Regular rate and rhythm ABDOMEN: Large, obese, Soft, nondistended, nontender; no hepatosplenomegaly; bowel sounds are present in all four quadrants. EXTREMITIES: No clubbing, cyanosis, or edema. SKIN: Normal; no rash; no jaundice. GREEN FEED ATTENDANT: No focal deficits; alert and oriented times three. (Juanita Santos) Assessment and Plan Assessment: (1) Nausea & vomiting ICD Codes: R11.2 - Nausea with vomiting, unspecified Status: Acute Plan Nausea and vomiting fairly steady for the past 3 months she is affected her appetite and her eating habits. States that she has been able to eat cheese and crackers, otherwise minimal food. He's had no vomiting in the past 5 days but continues with nausea especially with drinking liquids or trying to eat food. Denies any melena or hematemesis. Never had a colonoscopy or EGD. Patient notes history of some chronic constipation at times but uses stool softeners and has no other issues. Patient denies any dysphasia. Plan PPI Anti-emetics Consent for EGD Wednesday Nothing by mouth at midnight Wednesday night Supportive care Monitor labs which include hemoglobin Monitor for any acute bleeding episodes or any acute chest pain Further recommendations to follow Plan of care has been discussed with Dr. Higgins, patient was seen per myself and Dr. Higgins, note was written on his behalf (Juanita Santos) Physician Comments Patient seen and examined Agree with above Continue with current supportive care Monitor labs Plan for an EGD on Wednesday to further evaluate the epigastric pain and nausea and vomiting Considering gastroparesis as a potential underlying etiology if endoscopy is negative as patient is on chronic pain medication Also noted patient with history of coronary artery disease and cardiac stenting (Thien Higgins MD) Juanita Santos Nov 12, 2017 16:28 Thien Higgins MD Nov 12, 2017 22:55
[2017-11-12 16:41] LABS: HEMOGLOBIN A1C 8.9 % (4.3-6.0)
[2017-11-12] MEDS: PANTOPRAZOLE SODIUM 40 MG VIAL IV PUSH SCH ×2 (18:03→20:32)
[2017-11-12] MEDS: ATORVASTATIN 80 MG TAB PO SCH (20:33)
[2017-11-12] MEDS: MORPHINE SULFATE 2 MG/ML INJ IV PUSH PRN (20:33)
[2017-11-12] MEDS: CARVEDILOL 3.125 MG TAB PO SCH (20:33)
[2017-11-13] VITALS (23 sets, daily range): BP systolic 114–168; BP diastolic 54–89; PULSE 70–109; RESP 2–27; TEMP 97.9–98.5; O2SAT 85–99
[2017-11-13] MEDS: NS + KCL 20 MEQ INJ 1,000 ML IV SCH ×2 (00:31→10:50)
[2017-11-13] MEDS: ONDANSETRON HCL 4 MG/2 ML VIAL IVP PRN ×2 (04:45→18:36)
[2017-11-13] MEDS: MORPHINE SULFATE 2 MG/ML INJ IV PUSH PRN ×5 (04:45→20:31)
[2017-11-13 05:35] LABS: HEMATOCRIT 32.4 % (35.0-46.0); HEMOGLOBIN 10.7 GM/DL (11.6-15.3); MEAN CELL VOLUME 95.7 FL (80.0-100.0); MEAN CORPUSCULAR HEMOGLOBIN 31.7 PG (27.0-34.0); MEAN CORPUSCULAR HGB CONC 33.2 % (32.0-36.0); MEAN PLATELET VOLUME 8.6 FL (7.0-11.0); PLATELET COUNT 262 TH/MM3 (150-450); RED BLOOD COUNT 3.38 MIL/MM3 (4.00-5.30); RED CELL DISTRIBUTION WIDTH 15.6 % (11.6-17.2); WHITE BLOOD COUNT 8.6 TH/MM3 (4.0-11.0)
[2017-11-13 06:06] LABS: BICARBONATE 23.3 MEQ/L (21.0-32.0); CALCIUM 7.8 MG/DL (8.5-10.1); CREATININE 0.68 MG/DL (0.50-1.00)
--- NOTE | 2017-11-13 08:50 | PD.CARD.PN ---
Subjective Subjective Remarks alert in nad, denies chest pain Objective Medications Current Medications Medications (Trade) Dose Ordered Sig/Leonides Route Start Time Stop Time Status Last Admin (Tylenol) 650 mg Q4H PRN PO 11/10/17 21:15 11/11/17 00:08 (Zofran Inj) 4 mg Q6H PRN IVP 11/10/17 21:15 11/13/17 04:45 (Narcan Inj) 0.4 mg UNSCH PRN IV PUSH 11/10/17 21:15 (Tiffany-Colace) 1 tab BID PO 11/11/17 09:00 11/11/17 20:46 (Milk Of Magnesia Liq) 30 ml Q12H PRN PO 11/10/17 21:15 (Senokot) 17.2 mg Q12H PRN PO 11/10/17 21:15 (Dulcolax Supp) 10 mg DAILY PRN RECTAL 11/10/17 21:15 (Lactulose Liq) 30 ml DAILY PRN PO 11/10/17 21:15 (Morphine Inj) 2 mg Q3H PRN IV PUSH 11/10/17 21:15 11/13/17 04:45 Potassium Chloride/Sodium Chloride 1,000 ml @ 100 mls/hr Q10H IV 11/10/17 21:30 11/13/17 00:31 (NS Flush) 2 ml UNSCH PRN IV FLUSH 11/11/17 13:45 (NS Flush) 2 ml BID IV FLUSH 11/11/17 21:00 11/12/17 20:33 (Aspirin Chew) 81 mg DAILY PO 11/12/17 09:00 11/12/17 12:27 (Plavix) 75 mg DAILY PO 11/12/17 09:00 11/12/17 12:28 Nitroglycerin/ Dextrose 250 ml @ 1.5 mls/hr TITRATE PRN IV 11/11/17 20:00 11/11/17 15:30 (Altace) 2.5 mg DAILY PO 11/13/17 09:00 (Coreg) 3.125 mg Q12HR PO 11/12/17 21:00 11/12/17 20:33 (Lipitor) 80 mg HS PO 11/12/17 21:00 11/12/17 20:33 (Protonix Inj) 40 mg Q12HR IV PUSH 11/12/17 16:30 11/12/17 20:32 Vital Signs / I&O Vital Signs Date Time Temp Pulse Resp B/P (MAP) Pulse Ox O2 Delivery O2 Flow Rate FiO2 11/13/17 05:16 82 114/52 11/13/17 04:00 97.9 84 2 114/58 (76) 95 11/13/17 04:00 75 11/13/17 00:00 75 11/13/17 00:00 98.4 74 22 118/59 (78) 95 11/12/17 23:34 76 104/53 11/12/17 22:15 71 121/60 11/12/17 20:42 79 185/82 11/12/17 20:00 82 11/12/17 20:00 98.3 79 24 186/81 (116) 92 11/12/17 20:00 Nasal Cannula 3.00 11/12/17 20:00 79 179/76 11/12/17 19:08 96 Nasal Cannula 2.00 11/12/17 18:00 76 11/12/17 17:00 83 11/12/17 16:13 98.0 74 18 148/67 (94) 98 11/12/17 16:13 77 11/12/17 16:00 73 11/12/17 15:00 76 11/12/17 14:00 78 11/12/17 13:00 78 11/12/17 12:00 97.8 74 18 150/74 (99) 98 11/12/17 12:00 72 11/12/17 12:00 74 11/12/17 11:00 90 11/12/17 10:00 76 11/12/17 09:00 80 I/O 11/12/17 11/12/17 11/12/17 11/13/17 11/13/17 11/13/17 07:00 15:00 23:00 07:00 15:00 23:00 Intake Total 1140 ml 900 ml 580 ml 1750 ml Output Total 575 ml 500 ml 450 ml Balance 565 ml 900 ml 80 ml 1300 ml Intake Oral 240 ml 580 ml 240 ml IV Total 900 ml 900 ml 1510 ml Output Urine Total 575 ml 500 ml 450 ml # Bowel Movements 0 2 0 Physical Exam GENERAL: SKIN: Warm and dry. HEAD: Normocephalic. EYES: No scleral icterus. No injection or drainage. NECK: Supple, trachea midline. No JVD or lymphadenopathy. CARDIOVASCULAR: Regular rate and rhythm without murmurs, gallops, or rubs. RESPIRATORY: Breath sounds equal bilaterally. No accessory muscle use. GASTROINTESTINAL: Abdomen soft, non-tender, nondistended. MUSCULOSKELETAL: No cyanosis, or edema. BACK: Nontender without obvious deformity. No CVA tenderness. Laboratory Laboratory Tests Test 11/13/17 05:13 White Blood Count 8.6 TH/MM3 Red Blood Count 3.38 MIL/MM3 Hemoglobin 10.7 GM/DL Hematocrit 32.4 % Mean Corpuscular Volume 95.7 FL Mean Corpuscular Hemoglobin 31.7 PG Mean Corpuscular Hemoglobin Concent 33.2 % Red Cell Distribution Width 15.6 % Platelet Count 262 TH/MM3 Mean Platelet Volume 8.6 FL Blood Urea Nitrogen 11 MG/DL Creatinine 0.68 MG/DL Random Glucose 148 MG/DL Calcium Level 7.8 MG/DL Sodium Level 143 MEQ/L Potassium Level 4.4 MEQ/L Chloride Level 114 MEQ/L Carbon Dioxide Level 23.3 MEQ/L Anion Gap 6 MEQ/L Estimat Glomerular Filtration Rate 82 ML/MIN Assessment and Plan Problem List: (1) CAD (coronary artery disease) ICD Codes: I25.10 - Atherosclerotic heart disease of [place] coronary artery without angina pectoris (2) NSTEMI (non-ST elevated myocardial infarction) ICD Codes: I21.4 - Non-ST elevation (NSTEMI) myocardial infarction Assessment and Plan 1.) CAD/NSTEMI - pod #2 pci bms lcx and om, chest pain free, continue aspirin and plavix, continue lipitor 80 mg hs, altace 2.5 mg qd, coreg 3.125 mg bid; ok to dc from cv standpoint, f/u with me in office 11/15/17; d/w patient and her daughter 2.) moderate risk for noncardiac procedure Alistair Jacobs MD Nov 13, 2017 08:50
[2017-11-13] MEDS: CLOPIDOGREL 75 MG TAB PO SCH (08:53)
[2017-11-13] MEDS: CARVEDILOL 3.125 MG TAB PO SCH ×2 (08:53→19:19)
[2017-11-13] MEDS: ASPIRIN 81 MG CHEW TAB PO SCH (08:54)
[2017-11-13] MEDS: RAMIPRIL 2.5 MG CAP PO SCH (08:54)
[2017-11-13] MEDS: SODIUM CHLORIDE 0.9% FLUSH 10 ML FLUSH IV FLUSH SCH ×2 (08:55→20:32)
[2017-11-13] MEDS: PANTOPRAZOLE SODIUM 40 MG VIAL IV PUSH SCH ×2 (08:55→20:32)
[2017-11-13] MEDS: DOCUSATE SODIUM 50 MG/SENNA 8.6 MG TAB PO SCH ×2 (08:55→20:32)
--- NOTE | 2017-11-13 13:10 | HHI.PR ---
Subjective Remarks This is a pleasant 87 y/o Female with no significant Medical history who came to ER with severe nausea and vomit, nauseated for the last three months With Diagnosis of Non STEMI, coronary artery disease and syncope, had Bare Metal Stent of the mid left circumflex vessel and PCI bare stent of the distal left circumflex vessel. 11/11/17, Seen in her bedroom and she continues with Gastroesophageal symptoms, states was not seen by GI specialist wants to talk with GI specialist asked for consult. 11/13: Sable in her bedroom, seen by GI specialist, the patient never had an EGD or Colonoscopy, asked by GI for EGD for 11/15/17, The patient takes chronically pain medicines, suggested by GI specialist probable Gastroparesis secondary to pain medicines. seen by career development specialist doctor Jacobs with diagnosis of CAD and NSTEMI recommended to continue Aspirin, Plavix, Lipitor 80 mg HS, Altace 2.5 mg daily, Coreg 3.125 mg BID, and okay to discharge and follow in his office 11/15/17. moderate risk for non cardiac procedure. Objective Vital Signs Date Time Temp Pulse Resp B/P (MAP) Pulse Ox O2 Delivery O2 Flow Rate FiO2 11/13/17 11:01 73 11/13/17 11:01 98.0 74 18 118/54 (75) 97 11/13/17 10:01 70 11/13/17 09:00 80 11/13/17 09:00 97 Nasal Cannula 3.00 11/13/17 08:30 Nasal Cannula 3.00 11/13/17 08:30 98.0 81 18 123/63 (83) 91 11/13/17 08:00 74 11/13/17 07:00 81 11/13/17 05:16 82 114/52 11/13/17 04:00 97.9 84 2 114/58 (76) 95 11/13/17 04:00 75 11/13/17 00:00 75 11/13/17 00:00 98.4 74 22 118/59 (78) 95 11/12/17 23:34 76 104/53 11/12/17 22:15 71 121/60 11/12/17 20:42 79 185/82 11/12/17 20:00 82 11/12/17 20:00 98.3 79 24 186/81 (116) 92 11/12/17 20:00 Nasal Cannula 3.00 11/12/17 20:00 79 179/76 11/12/17 19:08 96 Nasal Cannula 2.00 11/12/17 18:00 76 11/12/17 17:00 83 11/12/17 16:13 98.0 74 18 148/67 (94) 98 11/12/17 16:13 77 11/12/17 16:00 73 11/12/17 15:00 76 11/12/17 14:00 78 I/O 11/12/17 11/12/17 11/12/17 11/13/17 11/13/17 11/13/17 07:00 15:00 23:00 07:00 15:00 23:00 Intake Total 1140 ml 900 ml 580 ml 1750 ml 1000 ml Output Total 575 ml 500 ml 450 ml Balance 565 ml 900 ml 80 ml 1300 ml 1000 ml Intake Oral 240 ml 580 ml 240 ml IV Total 900 ml 900 ml 1510 ml 1000 ml Output Urine Total 575 ml 500 ml 450 ml # Bowel Movements 0 2 0 Result Diagram: 11/13/17 0513 11/13/17 0513 Imaging Last Impressions Chest X-Ray 11/10/17 0000 Signed Impressions: Service Date/Time: Friday, November 10, 2017 19:07 - CONCLUSION: No acute disease. Juan Carlos Torres MD Procedures With Diagnosis of Non STEMI, coronary artery disease and syncope, had Bare Metal Stent of the mid left circumflex vessel and PCI bare stent of the distal left circumflex vessel. 11/11/17. Other Results Laboratory Tests Test 11/10/17 15:52 11/11/17 02:49 11/11/17 08:10 11/11/17 11:26 Lipase 188 U/L Prothrombin Time 10.7 SEC Prothromb Time International Ratio 1.1 RATIO Creatine Kinase MB 2.1 NG/ML Creatine Kinase MB % 0.8 % Troponin I 0.56 NG/ML Activated Partial Thromboplast Time 32.9 SEC Test 11/12/17 04:27 11/13/17 05:13 Neutrophils (%) (Auto) 63.3 % Lymphocytes (%) (Auto) 20.9 % Monocytes (%) (Auto) 11.1 % Eosinophils (%) (Auto) 4.2 % Basophils (%) (Auto) 0.5 % Neutrophils # (Auto) 4.3 TH/MM3 Lymphocytes # (Auto) 1.4 TH/MM3 Monocytes # (Auto) 0.8 TH/MM3 Eosinophils # (Auto) 0.3 TH/MM3 Basophils # (Auto) 0.0 TH/MM3 CBC Comment DIFF FINAL Differential Comment Hemoglobin A1c 8.9 % Blood Urea Nitrogen 15 MG/DL 11 MG/DL Creatinine 0.74 MG/DL 0.68 MG/DL Random Glucose 152 MG/DL 148 MG/DL Total Protein 6.9 GM/DL Albumin 3.2 GM/DL Calcium Level 8.3 MG/DL 7.8 MG/DL Phosphorus Level 2.0 MG/DL Magnesium Level 2.0 MG/DL Alkaline Phosphatase 67 U/L Aspartate Amino Transf (AST/SGOT) 36 U/L Alanine Aminotransferase (ALT/SGPT) 30 U/L Total Bilirubin 0.4 MG/DL Direct Bilirubin 0.1 MG/DL Sodium Level 142 MEQ/L 143 MEQ/L Potassium Level 3.3 MEQ/L 4.4 MEQ/L Chloride Level 106 MEQ/L 114 MEQ/L Carbon Dioxide Level 28.2 MEQ/L 23.3 MEQ/L Indirect Bilirubin 0.3 MG/DL Total Creatine Kinase 186 U/L Triglycerides Level 153 MG/DL Cholesterol Level 218 MG/DL LDL Cholesterol 145 MG/DL HDL Cholesterol 42.6 MG/DL Cholesterol/HDL Ratio 5.11 RATIO White Blood Count 8.6 TH/MM3 Red Blood Count 3.38 MIL/MM3 Hemoglobin 10.7 GM/DL Hematocrit 32.4 % Mean Corpuscular Volume 95.7 FL Mean Corpuscular Hemoglobin 31.7 PG Mean Corpuscular Hemoglobin Concent 33.2 % Red Cell Distribution Width 15.6 % Platelet Count 262 TH/MM3 Mean Platelet Volume 8.6 FL Anion Gap 6 MEQ/L Estimat Glomerular Filtration Rate 82 ML/MIN Objective Remarks GENERAL: No acute distress. Obesity. SKIN: No rashes, ecchymoses or lesions. Cool and dry. HEAD: Atraumatic. Normocephalic. No temporal or scalp tenderness. EYES: Pupils equal round and reactive. Extraocular motions intact. No scleral icterus. No injection or drainage. ENT: Nose without bleeding, purulent drainage or septal hematoma. Throat without erythema, tonsillar hypertrophy or exudate. Uvula midline. Airway patent. NECK: Trachea midline. No JVD or lymphadenopathy. Supple, nontender, no meningeal signs. CARDIOVASCULAR: Regular rate and rhythm without murmurs, gallops, or rubs. RESPIRATORY: Clear to auscultation. Breath sounds equal bilaterally. No wheezes , rales, or rhonchi. GASTROINTESTINAL: Abdomen soft, non-tender, nondistended. No hepato-splenomegaly , or palpable masses. No guarding. MUSCULOSKELETAL: Extremities without clubbing, cyanosis, or edema. No joint tenderness, effusion, or edema noted. No calf tenderness. NEUROLOGICAL: Awake and alert. Cranial nerves II through XII intact. Motor and sensory grossly within normal limits. Normal speech. Medications and IVs Current Medications Medications (Trade) Dose Ordered Sig/Leonides Route Start Time Stop Time Status Last Admin (Tylenol) 650 mg Q4H PRN PO 11/10/17 21:15 11/11/17 00:08 (Zofran Inj) 4 mg Q6H PRN IVP 11/10/17 21:15 11/13/17 04:45 (Narcan Inj) 0.4 mg UNSCH PRN IV PUSH 11/10/17 21:15 (Tiffany-Colace) 1 tab BID PO 11/11/17 09:00 11/11/17 20:46 (Milk Of Magnesia Liq) 30 ml Q12H PRN PO 11/10/17 21:15 (Senokot) 17.2 mg Q12H PRN PO 11/10/17 21:15 (Dulcolax Supp) 10 mg DAILY PRN RECTAL 11/10/17 21:15 (Lactulose Liq) 30 ml DAILY PRN PO 11/10/17 21:15 (Morphine Inj) 2 mg Q3H PRN IV PUSH 11/10/17 21:15 11/13/17 12:33 Potassium Chloride/Sodium Chloride 1,000 ml @ 100 mls/hr Q10H IV 11/10/17 21:30 11/13/17 10:50 (NS Flush) 2 ml UNSCH PRN IV FLUSH 11/11/17 13:45 (NS Flush) 2 ml BID IV FLUSH 11/11/17 21:00 11/13/17 08:55 (Aspirin Chew) 81 mg DAILY PO 11/12/17 09:00 11/13/17 08:54 (Plavix) 75 mg DAILY PO 11/12/17 09:00 11/13/17 08:53 Nitroglycerin/ Dextrose 250 ml @ 1.5 mls/hr TITRATE PRN IV 11/11/17 20:00 11/11/17 15:30 (Altace) 2.5 mg DAILY PO 11/13/17 09:00 11/13/17 08:54 (Coreg) 3.125 mg Q12HR PO 11/12/17 21:00 11/13/17 08:53 (Lipitor) 80 mg HS PO 11/12/17 21:00 11/12/17 20:33 (Protonix Inj) 40 mg Q12HR IV PUSH 11/12/17 16:30 11/13/17 08:55 A/P Assessment and Plan 1. Non STEMI, coronary artery disease and syncope, had Bare Metal Stent of the mid left circumflex vessel and PCI bare stent of the distal left circumflex vessel. 11/11/17, recommended to continue Aspirin and Plavix. at this time continue Nitroglycerine. EKG shows normal sinus rhythm, pulse 77, with T-wave inversion in leads I- II and V2-V6, ST segment elevations or depressions Seen by career development specialist doctor Jacobs with diagnosis of CAD and NSTEMI recommended to continue Aspirin, Plavix, Lipitor 80 mg HS, Altace 2.5 mg daily, Coreg 3.125 mg BID, and okay to discharge and follow in his office . moderate risk for non cardiac procedure. 2. Nausea/vomiting/GERD symptoms for the last three months not improving, seen by GI specialist, the patient never had an EGD or Colonoscopy, asked by GI for EGD for 11/15/17, The patient takes chronically pain medicines, suggested by GI specialist probable Gastroparesis secondary to pain medicines 3. MARY ANN Improved. 4. Hypokalemia continue replacement 5. obesity strongly recommended diet and exercise. 6. DM II hemoglobin A1C 8.9, Poorly controlled, the patient is not taking this medicine from Home, asked for sliding scale, changed diet to ADA Diet. and asked for Diabetes Education. DVT prophylaxis SCDs awaiting for EGD encourage ambulation. Discharge Planning once cleared by GI specialist Andrew Sheikh MD Nov 13, 2017 13:10
--- NOTE | 2017-11-13 16:06 | HHI.GIFU ---
Subjective Remarks Patient sitting on side of the bed Alert oriented, pale but feeling much better today Nausea is improving not resolved yet Hemoglobin 10.7, oh obvious bleeding Afebrile (Juanita Santos) Objective Vitals I&O Vital Signs Date Time Temp Pulse Resp B/P (MAP) Pulse Ox O2 Delivery O2 Flow Rate FiO2 11/13/17 15:30 98.2 77 18 144/63 (90) 97 11/13/17 11:01 73 11/13/17 11:01 98.0 74 18 118/54 (75) 97 11/13/17 10:01 70 11/13/17 09:00 80 11/13/17 09:00 97 Nasal Cannula 3.00 11/13/17 08:30 Nasal Cannula 3.00 11/13/17 08:30 98.0 81 18 123/63 (83) 91 11/13/17 08:00 74 11/13/17 07:00 81 11/13/17 05:16 82 114/52 11/13/17 04:00 97.9 84 2 114/58 (76) 95 11/13/17 04:00 75 11/13/17 00:00 75 11/13/17 00:00 98.4 74 22 118/59 (78) 95 11/12/17 23:34 76 104/53 11/12/17 22:15 71 121/60 11/12/17 20:42 79 185/82 11/12/17 20:00 82 11/12/17 20:00 98.3 79 24 186/81 (116) 92 11/12/17 20:00 Nasal Cannula 3.00 11/12/17 20:00 79 179/76 11/12/17 19:08 96 Nasal Cannula 2.00 11/12/17 18:00 76 11/12/17 17:00 83 11/12/17 16:13 98.0 74 18 148/67 (94) 98 11/12/17 16:13 77 I/O 11/12/17 11/12/17 11/12/17 11/13/17 11/13/17 11/13/17 07:00 15:00 23:00 07:00 15:00 23:00 Intake Total 1140 ml 900 ml 580 ml 1750 ml 1000 ml Output Total 575 ml 500 ml 450 ml Balance 565 ml 900 ml 80 ml 1300 ml 1000 ml Intake Oral 240 ml 580 ml 240 ml IV Total 900 ml 900 ml 1510 ml 1000 ml Output Urine Total 575 ml 500 ml 450 ml # Bowel Movements 0 2 0 Laboratory Laboratory Tests Test 11/13/17 05:13 White Blood Count 8.6 Red Blood Count 3.38 Hemoglobin 10.7 Hematocrit 32.4 Mean Corpuscular Volume 95.7 Mean Corpuscular Hemoglobin 31.7 Mean Corpuscular Hemoglobin Concent 33.2 Red Cell Distribution Width 15.6 Platelet Count 262 Mean Platelet Volume 8.6 Blood Urea Nitrogen 11 Creatinine 0.68 Random Glucose 148 Calcium Level 7.8 Sodium Level 143 Potassium Level 4.4 Chloride Level 114 Carbon Dioxide Level 23.3 Anion Gap 6 Estimat Glomerular Filtration Rate 82 Imaging Last Impressions Chest X-Ray 11/10/17 0000 Signed Impressions: Service Date/Time: Friday, November 10, 2017 19:07 - CONCLUSION: No acute disease. Juan Carlos Torres MD Physical Exam HEENT: Pupils round and reactive to light; normocephalic; atraumatic; no jaundice. NECK: Neck is supple, obese CHEST: Chest is clear to auscultation and percussion. Without obvious rhonchi CARDIAC: Regular rate and rhythm ABDOMEN: Large, round, Soft, nondistended, nontender; no hepatosplenomegaly; bowel sounds are present in all four quadrants. EXTREMITIES: No clubbing, cyanosis, or edema. SKIN: Pale, thin turgor; no rash; no jaundice. CHAIR LIFT OPERATOR: No focal deficits; alert and oriented times three. (Juanita Santos) Assessment and Plan Assessment: (1) Nausea & vomiting ICD Codes: R11.2 - Nausea with vomiting, unspecified Status: Acute Plan Nausea and vomiting fairly steady for the past 3 months she is affected her appetite and her eating habits. States that she has been able to eat cheese and crackers, otherwise minimal food. He's had no vomiting in the past 5 days but continues with nausea especially with drinking liquids or trying to eat food. Denies any melena or hematemesis. Never had a colonoscopy or EGD. Patient notes history of some chronic constipation at times but uses stool softeners and has no other issues. Patient denies any dysphasia. 11/13/17. Patient's nausea is much more controlled today with medications. No vomiting noted. Discussed endoscopy for Wednesday and plan a care. Patient is feeling much better today, sitting on side of the bed. No obvious bleeding hemoglobin 10.7. Anemia unspecified for now, possible chronic disease. Plan PPI Anti-emetics Consent for EGD Wednesday Nothing by mouth at midnight Wednesday night Supportive care Monitor labs which include hemoglobin Monitor for any acute bleeding episodes or any acute chest pain Further recommendations to follow Patient was seen per myself and Dr. Higgins, note was written on his behalf (Juanita Santos) Physician Comments Patient seen and examined Agree with above Continue with current supportive care Monitor lab Plan for an EGD on Wednesday (Thien Higgins MD) Juanita Santos Nov 13, 2017 16:06 Thien Higgins MD Nov 13, 2017 17:56
[2017-11-13] MEDS: INSULIN ASPART SUPPLEMENTAL SCALE SQ SCH ×2 (17:00→22:04)
[2017-11-13] MEDS ORDERED: FUROSEMIDE 40 MG/4 ML VIAL IV PUSH ONE ×2 (18:45→19:15)
[2017-11-13] MEDS ORDERED: hydrALAZINE HCL 20 MG/ML VIAL IV PUSH ONE (19:30)
--- NOTE | 2017-11-13 19:35 | RADRPT ---
EXAM DATE/TIME: 11/13/2017 19:20 [facility] COMPARISON: CHEST SINGLE AP, November 10, 2017, 19:07. INDICATIONS : HALICAT. Shortness of breath. MEDICAL HISTORY : None. SURGICAL HISTORY : None. ENCOUNTER: Subsequent ACUITY: 1 day PAIN SCORE: 0/10 LOCATION: chest FINDINGS: There is patchy airspace disease present within both lower lobes. Tiny effusions are not excludable. Cardiomegaly and aortic calcification. Osseous structures are intact. CONCLUSION: Bilateral basilar airspace disease. Tremaine Collins MD on November 13, 2017 at 19:32 Board Certified Radiologist. This report was verified electronically.
--- NOTE | 2017-11-13 19:35 | HHI.PR ---
Addendum to Inpatient Note Addendum Reason: Additional Documentation Additional Information S: Medical team solution director notified of LMICAT at approximately 1900. Per report, patient progressively became short of breath throughout the day and then had an acute increase in SOB with crackles in her lungs prior to calling the HALICAT. Upon entering the room the patient is yelling incomprehensible syllables while on BiPAP. When asked what the patient is screaming about she is able to communicate that she is nauseous. Prior to arriving primary team paged and ordered to give Lasix 40mg approximately 30 min ago, however the patient's symptoms have not improved per report. O: Vitals: BP 222/213, HR 112, RR 32 with O2 86%, Afebrile GENERAL: Elderly female lying in bed in respiratory distress. SKIN: Warm and dry. No rash. HEENT: Atraumatic, normocephalic with extraocular motions intact. No rhinorrhea. No visible lymphadenopathy or jugulovenous distension appreciated. CARDIOVASCULAR: Tachycardic rate with regular rhythm without obvious murmurs, gallops, or rubs. 2+ pulses in all four extremities. RESPIRATORY: Bilateral crackles to the bases. Patient currently on respiratory distress and unable to speak in full sentences. Patient intermittently tripoding with accessory muscle use. GASTROINTESTINAL: Abdomen nondistended, nontender with positive bowel sounds. MUSCULOSKELETAL: No cyanosis or edema. No calf tenderness. NEURO/PSYCH: Afocal. Awake, alert, and oriented x3. A/P: Ms. Coronado is a 87 y/o F admitted for NSTEMI s/p heart catheterization presenting with acute SOB likely due to volume overload. 1. SOB -Exam consistent with volume overload -Fluids discontinued -Lasix 40mg given earlier -Repeat Lasix 40mg IV given (Cr 0.68/potassium 4.4) -Stat chest x-ray ordered, bedside read consistent with volume overload (per medical team read) -ABG, BNP, troponin, CK-MB ordered x1 -BiPAP placed 2. Hypertensive urgency -Patient previously with normal blood pressure, however was on nitro drip. Likely anxiety component as well. -Hydralazine 10 mg IV push 1 -Repeat pressure 168/84 after medication 3. Tachycardia -Patient previously with normal rate, likely due to anxiety -Scheduled Coreg given 4. Nausea -Patient given Zofran prior to HALICAT -Patient's attending physician notified by nursing staff and will resume care at this time SDW: Alexandru Medina MD R2 Nov 13, 2017 19:35
[2017-11-13 19:58] LABS: TROPONIN I 0.06 NG/ML (0.02-0.05)
[2017-11-13] MEDS ORDERED: LORazepam 2 MG/ML VIAL IV PUSH ONE (20:00)
[2017-11-13] MEDS: ATORVASTATIN 80 MG TAB PO SCH (20:32)
[2017-11-14] VITALS (29 sets, daily range): BP systolic 104–169; BP diastolic 51–90; PULSE 64–98; RESP 17–22; TEMP 97.8–98.4; O2SAT 92–100
[2017-11-14] MEDS: INSULIN ASPART SUPPLEMENTAL SCALE SQ SCH ×4 (08:00→20:18)
[2017-11-14] MEDS: SODIUM CHLORIDE 0.9% FLUSH 10 ML FLUSH IV FLUSH SCH ×2 (09:55→20:17)
[2017-11-14] MEDS: RAMIPRIL 2.5 MG CAP PO SCH (09:55)
[2017-11-14] MEDS: PANTOPRAZOLE SODIUM 40 MG VIAL IV PUSH SCH ×2 (09:55→20:16)
[2017-11-14] MEDS: ASPIRIN 81 MG CHEW TAB PO SCH (09:55)
[2017-11-14] MEDS: MORPHINE SULFATE 2 MG/ML INJ IV PUSH PRN ×4 (09:55→23:10)
[2017-11-14] MEDS: ONDANSETRON HCL 4 MG/2 ML VIAL IVP PRN ×2 (09:55→17:54)
[2017-11-14] MEDS: DOCUSATE SODIUM 50 MG/SENNA 8.6 MG TAB PO SCH ×2 (09:56→20:16)
[2017-11-14] MEDS: CLOPIDOGREL 75 MG TAB PO SCH (09:56)
[2017-11-14] MEDS: CARVEDILOL 3.125 MG TAB PO SCH ×2 (09:56→20:16)
--- NOTE | 2017-11-14 11:04 | PD.CARD.PN ---
Subjective Subjective Remarks alert in nad, denies chest pain Objective Medications Current Medications Medications (Trade) Dose Ordered Sig/Leonides Route Start Time Stop Time Status Last Admin (Tylenol) 650 mg Q4H PRN PO 11/10/17 21:15 11/11/17 00:08 (Zofran Inj) 4 mg Q6H PRN IVP 11/10/17 21:15 11/14/17 09:55 (Narcan Inj) 0.4 mg UNSCH PRN IV PUSH 11/10/17 21:15 (Tiffany-Colace) 1 tab BID PO 11/11/17 09:00 11/14/17 09:56 (Milk Of Magnesia Liq) 30 ml Q12H PRN PO 11/10/17 21:15 (Senokot) 17.2 mg Q12H PRN PO 11/10/17 21:15 (Dulcolax Supp) 10 mg DAILY PRN RECTAL 11/10/17 21:15 (Lactulose Liq) 30 ml DAILY PRN PO 11/10/17 21:15 (Morphine Inj) 2 mg Q3H PRN IV PUSH 11/10/17 21:15 11/14/17 09:55 (NS Flush) 2 ml UNSCH PRN IV FLUSH 11/11/17 13:45 (NS Flush) 2 ml BID IV FLUSH 11/11/17 21:00 11/14/17 09:55 (Aspirin Chew) 81 mg DAILY PO 11/12/17 09:00 11/14/17 09:55 (Plavix) 75 mg DAILY PO 11/12/17 09:00 11/14/17 09:56 Nitroglycerin/ Dextrose 250 ml @ 1.5 mls/hr TITRATE PRN IV 11/11/17 20:00 11/11/17 15:30 (Altace) 2.5 mg DAILY PO 11/13/17 09:00 11/14/17 09:55 (Coreg) 3.125 mg Q12HR PO 11/12/17 21:00 11/14/17 09:56 (Lipitor) 80 mg HS PO 11/12/17 21:00 11/12/17 20:33 (Protonix Inj) 40 mg Q12HR IV PUSH 11/12/17 16:30 11/14/17 09:55 (NovoLOG SUPPLEMENTAL SCALE) 1 ACHS SLIDING SCALE SQ 11/13/17 17:00 11/13/17 22:04 (Lasix Inj) 20 mg BID@ IV PUSH 11/14/17 18:00 Vital Signs / I&O Vital Signs Date Time Temp Pulse Resp B/P (MAP) Pulse Ox O2 Delivery O2 Flow Rate FiO2 11/14/17 10:00 77 11/14/17 09:21 98 Nasal Cannula 3.00 11/14/17 09:00 72 11/14/17 08:00 74 11/14/17 07:00 98.1 70 18 152/63 (92) 100 11/14/17 07:00 82 11/14/17 07:00 100 Nasal Cannula 4.00 11/14/17 06:00 89 11/14/17 05:00 79 11/14/17 04:00 79 11/14/17 03:25 98 Nasal Cannula 4.00 11/14/17 03:25 97.8 85 22 166/90 (115) 98 11/14/17 03:00 91 11/14/17 02:00 98 11/14/17 01:00 82 11/14/17 00:45 95 Nasal Cannula 4.00 11/14/17 00:00 84 11/13/17 23:45 98 Nasal Cannula 4.00 11/13/17 23:45 98 11/13/17 23:00 81 11/13/17 23:00 98.3 82 19 157/67 (97) 99 11/13/17 22:00 80 11/13/17 21:15 88 19 123/57 (79) 98 11/13/17 21:00 88 11/13/17 20:15 98.5 109 27 168/89 (115) 98 11/13/17 20:15 96 Bi-Pap 50 11/13/17 20:00 92 11/13/17 19:08 96 50 11/13/17 19:00 108 11/13/17 19:00 85 Nasal Cannula 5.00 11/13/17 19:00 94 15.00 100 11/13/17 16:01 72 11/13/17 15:30 98.2 77 18 144/63 (90) 97 11/13/17 15:00 73 11/13/17 14:00 72 11/13/17 13:00 72 11/13/17 12:00 72 I/O 11/13/17 11/13/17 11/13/17 11/14/17 11/14/17 11/14/17 07:00 15:00 23:00 07:00 15:00 23:00 Intake Total 1750 ml 1000 ml 350 ml Output Total 450 ml 750 ml 1150 ml Balance 1300 ml 1000 ml -400 ml -1150 ml Intake Oral 240 ml 350 ml IV Total 1510 ml 1000 ml Output Urine Total 450 ml 750 ml 1150 ml # Voids 1 3 # Bowel Movements 0 0 Physical Exam GENERAL: SKIN: Warm and dry. HEAD: Normocephalic. EYES: No scleral icterus. No injection or drainage. NECK: Supple, trachea midline. No JVD or lymphadenopathy. CARDIOVASCULAR: Regular rate and rhythm without murmurs, gallops, or rubs. RESPIRATORY: Breath sounds equal bilaterally. No accessory muscle use. GASTROINTESTINAL: Abdomen soft, non-tender, nondistended. MUSCULOSKELETAL: No cyanosis, or edema. BACK: Nontender without obvious deformity. No CVA tenderness. Laboratory Laboratory Tests Test 11/13/17 19:02 11/13/17 19:29 Blood Gas Puncture Site RT RADIAL Blood Gas Patient Temperature 98.6 Blood Gas HCO3 22 mmol/L Blood Gas Base Excess -4.3 mmol/L Blood Gas Oxygen Saturation 94 % Arterial Blood pH 7.26 Arterial Blood Partial Pressure CO2 50 mmHg Arterial Blood Partial Pressure O2 93 mmHg Arterial Blood Oxygen Content 17.0 Vol % Arterial Blood Carboxyhemoglobin 0.7 % Arterial Blood Methemoglobin 1.3 % Blood Gas Hemoglobin 12.8 G/DL Oxygen Delivery Device Non-Rebreathing Mask Blood Gas Liter Flow 15 L/M Blood Gas Inspired Oxygen 100 % Total Creatine Kinase 109 U/L Troponin I 0.06 NG/ML B-Type Natriuretic Peptide 615 PG/ML Assessment and Plan Problem List: (1) CAD (coronary artery disease) ICD Codes: I25.10 - Atherosclerotic heart disease of [place] coronary artery without angina pectoris (2) NSTEMI (non-ST elevated myocardial infarction) ICD Codes: I21.4 - Non-ST elevation (NSTEMI) myocardial infarction Assessment and Plan 1.) CAD/NSTEMI - pod #3 pci bms lcx and om, chest pain free, continue aspirin and plavix, continue lipitor 80 mg hs, altace 2.5 mg qd, coreg 3.125 mg bid; ok to dc from cv standpoint, add lasix 20 mg iv bid, f/u bnp/bmp in am 2.) moderate risk for noncardiac procedure Alistair Jacobs MD Nov 14, 2017 11:04
--- NOTE | 2017-11-14 14:40 | HHI.PR ---
Subjective Remarks This is a pleasant 87 y/o Female with no significant Medical history who came to ER with severe nausea and vomit, nauseated for the last three months With Diagnosis of Non STEMI, coronary artery disease and syncope, had Bare Metal Stent of the mid left circumflex vessel and PCI bare stent of the distal left circumflex vessel. 11/11/17, Seen in her bedroom and she continues with Gastroesophageal symptoms, states was not seen by GI specialist wants to talk with GI specialist asked for consult. 11/13: Sable in her bedroom, seen by GI specialist, the patient never had an EGD or Colonoscopy, asked by GI for EGD for 11/15/17, The patient takes chronically pain medicines, suggested by GI specialist probable Gastroparesis secondary to pain medicines. seen by store operations specialist doctor Jacobs with diagnosis of CAD and NSTEMI recommended to continue Aspirin, Plavix, Lipitor 80 mg HS, Altace 2.5 mg daily, Coreg 3.125 mg BID, and okay to discharge and follow in his office 11/15/17. moderate risk for non cardiac procedure. 11/14: Seen in her bedroom, no nausea, vomit or diarrhea she had some episode or volume overload yesterday night, given Lasix at this time improved condition awaiting for EGD for tomorrow morning and then will be discharged. Objective Vital Signs Date Time Temp Pulse Resp B/P (MAP) Pulse Ox O2 Delivery O2 Flow Rate FiO2 11/14/17 14:00 73 11/14/17 13:00 73 11/14/17 12:00 72 11/14/17 11:00 98 Nasal Cannula 3.00 11/14/17 11:00 98.0 73 18 104/51 (68) 98 11/14/17 11:00 77 11/14/17 10:00 77 11/14/17 09:21 98 Nasal Cannula 3.00 11/14/17 09:00 72 11/14/17 08:00 74 11/14/17 07:00 98.1 70 18 152/63 (92) 100 11/14/17 07:00 82 11/14/17 07:00 100 Nasal Cannula 4.00 11/14/17 06:00 89 11/14/17 05:00 79 11/14/17 04:00 79 11/14/17 03:25 98 Nasal Cannula 4.00 11/14/17 03:25 97.8 85 22 166/90 (115) 98 11/14/17 03:00 91 11/14/17 02:00 98 11/14/17 01:00 82 11/14/17 00:45 95 Nasal Cannula 4.00 11/14/17 00:00 84 11/13/17 23:45 98 Nasal Cannula 4.00 11/13/17 23:45 98 11/13/17 23:00 81 11/13/17 23:00 98.3 82 19 157/67 (97) 99 11/13/17 22:00 80 11/13/17 21:15 88 19 123/57 (79) 98 11/13/17 21:00 88 11/13/17 20:15 98.5 109 27 168/89 (115) 98 11/13/17 20:15 96 Bi-Pap 50 11/13/17 20:00 92 11/13/17 19:08 96 50 11/13/17 19:00 108 11/13/17 19:00 85 Nasal Cannula 5.00 11/13/17 19:00 94 15.00 100 11/13/17 16:01 72 11/13/17 15:30 98.2 77 18 144/63 (90) 97 11/13/17 15:00 73 I/O 11/13/17 11/13/17 11/13/17 11/14/17 11/14/17 11/14/17 07:00 15:00 23:00 07:00 15:00 23:00 Intake Total 1750 ml 1000 ml 350 ml Output Total 450 ml 750 ml 1150 ml Balance 1300 ml 1000 ml -400 ml -1150 ml Intake Oral 240 ml 350 ml IV Total 1510 ml 1000 ml Output Urine Total 450 ml 750 ml 1150 ml # Voids 1 3 # Bowel Movements 0 0 Result Diagram: 11/13/17 0513 11/13/17 0513 Imaging Last Impressions Chest X-Ray 11/13/17 0000 Signed Impressions: Service Date/Time: Monday, November 13, 2017 19:20 - CONCLUSION: Bilateral basilar airspace disease. Tremaine Collins MD Procedures With Diagnosis of Non STEMI, coronary artery disease and syncope, had Bare Metal Stent of the mid left circumflex vessel and PCI bare stent of the distal left circumflex vessel. 11/11/17. Other Results Laboratory Tests Test 11/10/17 15:52 11/11/17 02:49 11/11/17 08:10 11/11/17 11:26 Lipase 188 U/L Prothrombin Time 10.7 SEC Prothromb Time International Ratio 1.1 RATIO Creatine Kinase MB 2.1 NG/ML Creatine Kinase MB % 0.8 % Activated Partial Thromboplast Time 32.9 SEC Test 11/12/17 04:27 11/13/17 05:13 11/13/17 19:02 11/13/17 19:29 Neutrophils (%) (Auto) 63.3 % Lymphocytes (%) (Auto) 20.9 % Monocytes (%) (Auto) 11.1 % Eosinophils (%) (Auto) 4.2 % Basophils (%) (Auto) 0.5 % Neutrophils # (Auto) 4.3 TH/MM3 Lymphocytes # (Auto) 1.4 TH/MM3 Monocytes # (Auto) 0.8 TH/MM3 Eosinophils # (Auto) 0.3 TH/MM3 Basophils # (Auto) 0.0 TH/MM3 CBC Comment DIFF FINAL Differential Comment Hemoglobin A1c 8.9 % Blood Urea Nitrogen 15 MG/DL 11 MG/DL Creatinine 0.74 MG/DL 0.68 MG/DL Random Glucose 152 MG/DL 148 MG/DL Total Protein 6.9 GM/DL Albumin 3.2 GM/DL Calcium Level 8.3 MG/DL 7.8 MG/DL Phosphorus Level 2.0 MG/DL Magnesium Level 2.0 MG/DL Alkaline Phosphatase 67 U/L Aspartate Amino Transf (AST/SGOT) 36 U/L Alanine Aminotransferase (ALT/SGPT) 30 U/L Total Bilirubin 0.4 MG/DL Direct Bilirubin 0.1 MG/DL Sodium Level 142 MEQ/L 143 MEQ/L Potassium Level 3.3 MEQ/L 4.4 MEQ/L Chloride Level 106 MEQ/L 114 MEQ/L Carbon Dioxide Level 28.2 MEQ/L 23.3 MEQ/L Indirect Bilirubin 0.3 MG/DL Triglycerides Level 153 MG/DL Cholesterol Level 218 MG/DL LDL Cholesterol 145 MG/DL HDL Cholesterol 42.6 MG/DL Cholesterol/HDL Ratio 5.11 RATIO White Blood Count 8.6 TH/MM3 Red Blood Count 3.38 MIL/MM3 Hemoglobin 10.7 GM/DL Hematocrit 32.4 % Mean Corpuscular Volume 95.7 FL Mean Corpuscular Hemoglobin 31.7 PG Mean Corpuscular Hemoglobin Concent 33.2 % Red Cell Distribution Width 15.6 % Platelet Count 262 TH/MM3 Mean Platelet Volume 8.6 FL Anion Gap 6 MEQ/L Estimat Glomerular Filtration Rate 82 ML/MIN Blood Gas Puncture Site RT RADIAL Blood Gas Patient Temperature 98.6 Blood Gas HCO3 22 mmol/L Blood Gas Base Excess -4.3 mmol/L Blood Gas Oxygen Saturation 94 % Arterial Blood pH 7.26 Arterial Blood Partial Pressure CO2 50 mmHg Arterial Blood Partial Pressure O2 93 mmHg Arterial Blood Oxygen Content 17.0 Vol % Arterial Blood Carboxyhemoglobin 0.7 % Arterial Blood Methemoglobin 1.3 % Blood Gas Hemoglobin 12.8 G/DL Oxygen Delivery Device Non-Rebreathing Mask Blood Gas Liter Flow 15 L/M Blood Gas Inspired Oxygen 100 % Total Creatine Kinase 109 U/L Troponin I 0.06 NG/ML B-Type Natriuretic Peptide 615 PG/ML Objective Remarks GENERAL: No acute distress. Obesity. SKIN: No rashes, ecchymoses or lesions. Cool and dry. HEAD: Atraumatic. Normocephalic. No temporal or scalp tenderness. EYES: Pupils equal round and reactive. Extraocular motions intact. No scleral icterus. No injection or drainage. ENT: Nose without bleeding, purulent drainage or septal hematoma. Throat without erythema, tonsillar hypertrophy or exudate. Uvula midline. Airway patent. NECK: Trachea midline. No JVD or lymphadenopathy. Supple, nontender, no meningeal signs. CARDIOVASCULAR: Regular rate and rhythm without murmurs, gallops, or rubs. RESPIRATORY: Clear to auscultation. Breath sounds equal bilaterally. No wheezes , rales, or rhonchi. GASTROINTESTINAL: Abdomen soft, non-tender, nondistended. No hepato-splenomegaly , or palpable masses. No guarding. MUSCULOSKELETAL: Extremities without clubbing, cyanosis, or edema. No joint tenderness, effusion, or edema noted. No calf tenderness. NEUROLOGICAL: Awake and alert. Cranial nerves II through XII intact. Motor and sensory grossly within normal limits. Normal speech. Medications and IVs Current Medications Medications (Trade) Dose Ordered Sig/Leonides Route Start Time Stop Time Status Last Admin (Tylenol) 650 mg Q4H PRN PO 11/10/17 21:15 11/11/17 00:08 (Zofran Inj) 4 mg Q6H PRN IVP 11/10/17 21:15 11/14/17 09:55 (Narcan Inj) 0.4 mg UNSCH PRN IV PUSH 11/10/17 21:15 (Tiffany-Colace) 1 tab BID PO 11/11/17 09:00 11/14/17 09:56 (Milk Of Magnesia Liq) 30 ml Q12H PRN PO 11/10/17 21:15 (Senokot) 17.2 mg Q12H PRN PO 11/10/17 21:15 (Dulcolax Supp) 10 mg DAILY PRN RECTAL 11/10/17 21:15 (Lactulose Liq) 30 ml DAILY PRN PO 11/10/17 21:15 (Morphine Inj) 2 mg Q3H PRN IV PUSH 11/10/17 21:15 11/14/17 12:24 (NS Flush) 2 ml UNSCH PRN IV FLUSH 11/11/17 13:45 (NS Flush) 2 ml BID IV FLUSH 11/11/17 21:00 11/14/17 09:55 (Aspirin Chew) 81 mg DAILY PO 11/12/17 09:00 11/14/17 09:55 (Plavix) 75 mg DAILY PO 11/12/17 09:00 11/14/17 09:56 Nitroglycerin/ Dextrose 250 ml @ 1.5 mls/hr TITRATE PRN IV 11/11/17 20:00 11/11/17 15:30 (Altace) 2.5 mg DAILY PO 11/13/17 09:00 11/14/17 09:55 (Coreg) 3.125 mg Q12HR PO 11/12/17 21:00 11/14/17 09:56 (Lipitor) 80 mg HS PO 11/12/17 21:00 11/12/17 20:33 (Protonix Inj) 40 mg Q12HR IV PUSH 11/12/17 16:30 11/14/17 09:55 (NovoLOG SUPPLEMENTAL SCALE) 1 ACHS SLIDING SCALE SQ 11/13/17 17:00 11/13/17 22:04 (Lasix Inj) 20 mg BID@09,18 IV PUSH 11/14/17 18:00 A/P Assessment and Plan 1. Non STEMI, coronary artery disease and syncope, had Bare Metal Stent of the mid left circumflex vessel and PCI bare stent of the distal left circumflex vessel. 11/11/17, recommended to continue Aspirin and Plavix. at this time continue Nitroglycerine. EKG shows normal sinus rhythm, pulse 77, with T-wave inversion in leads I- II and V2-V6, ST segment elevations or depressions Seen by store operations specialist doctor Jacobs with diagnosis of CAD and NSTEMI recommended to continue Aspirin, Plavix, Lipitor 80 mg HS, Altace 2.5 mg daily, Coreg 3.125 mg BID, and okay to discharge and follow in his office . moderate risk for non cardiac procedure. 2. Nausea/vomiting/GERD symptoms for the last three months not improving, seen by GI specialist, the patient never had an EGD or Colonoscopy, asked by GI for EGD for 11/15/17, The patient takes chronically pain medicines, suggested by GI specialist probable Gastroparesis secondary to pain medicines 3. MARY ANN Improved. 4. Hypokalemia replaced. 5. obesity strongly recommended diet and exercise. 6. DM II hemoglobin A1C 8.9, Poorly controlled, the patient is not taking this medicine from Home, asked for sliding scale, changed diet to ADA Diet. and asked for Diabetes Education. 7. Respiratory insufficiency secondary to volume overload given Lasix at this time improved condition, continue low dose of Lasix IV by now store operations specialist following. Echocardiogram. as per Physical Therapy Home with [facility] on discharge. DVT prophylaxis SCDs awaiting for EGD encourage ambulation. Discharge Planning once cleared by GI specialist Andrew Sheikh MD Nov 14, 2017 14:40
--- NOTE | 2017-11-14 16:14 | HHI.GIFU ---
Subjective Remarks resting in bed, burping. has nausea, no vomiting. eager for EGD (Yumiko Jones) Objective Vitals I&O Vital Signs Date Time Temp Pulse Resp B/P (MAP) Pulse Ox O2 Delivery O2 Flow Rate FiO2 11/14/17 16:06 74 11/14/17 15:00 98.0 64 18 156/67 (96) 99 11/14/17 15:00 99 Nasal Cannula 3.00 11/14/17 15:00 68 11/14/17 14:00 73 11/14/17 13:00 73 11/14/17 12:00 72 11/14/17 11:00 98 Nasal Cannula 3.00 11/14/17 11:00 98.0 73 18 104/51 (68) 98 11/14/17 11:00 77 11/14/17 10:00 77 11/14/17 09:21 98 Nasal Cannula 3.00 11/14/17 09:00 72 11/14/17 08:00 74 11/14/17 07:00 98.1 70 18 152/63 (92) 100 11/14/17 07:00 82 11/14/17 07:00 100 Nasal Cannula 4.00 11/14/17 06:00 89 11/14/17 05:00 79 11/14/17 04:00 79 11/14/17 03:25 98 Nasal Cannula 4.00 11/14/17 03:25 97.8 85 22 166/90 (115) 98 11/14/17 03:00 91 11/14/17 02:00 98 11/14/17 01:00 82 11/14/17 00:45 95 Nasal Cannula 4.00 11/14/17 00:00 84 11/13/17 23:45 98 Nasal Cannula 4.00 11/13/17 23:45 98 11/13/17 23:00 81 11/13/17 23:00 98.3 82 19 157/67 (97) 99 11/13/17 22:00 80 11/13/17 21:15 88 19 123/57 (79) 98 11/13/17 21:00 88 11/13/17 20:15 98.5 109 27 168/89 (115) 98 11/13/17 20:15 96 Bi-Pap 50 11/13/17 20:00 92 11/13/17 19:08 96 50 11/13/17 19:00 108 11/13/17 19:00 85 Nasal Cannula 5.00 11/13/17 19:00 94 15.00 100 I/O 11/13/17 11/13/17 11/13/17 11/14/17 11/14/17 11/14/17 07:00 15:00 23:00 07:00 15:00 23:00 Intake Total 1750 ml 1000 ml 350 ml Output Total 450 ml 750 ml 1150 ml Balance 1300 ml 1000 ml -400 ml -1150 ml Intake Oral 240 ml 350 ml IV Total 1510 ml 1000 ml Output Urine Total 450 ml 750 ml 1150 ml # Voids 1 3 # Bowel Movements 0 0 Laboratory Laboratory Tests Test 11/13/17 19:02 11/13/17 19:29 Blood Gas Puncture Site RT RADIAL Blood Gas Patient Temperature 98.6 Blood Gas HCO3 22 Blood Gas Base Excess -4.3 Blood Gas Oxygen Saturation 94 Arterial Blood pH 7.26 Arterial Blood Partial Pressure CO2 50 Arterial Blood Partial Pressure O2 93 Arterial Blood Oxygen Content 17.0 Arterial Blood Carboxyhemoglobin 0.7 Arterial Blood Methemoglobin 1.3 Blood Gas Hemoglobin 12.8 Oxygen Delivery Device Non-Rebreathing Mask Blood Gas Liter Flow 15 Blood Gas Inspired Oxygen 100 Total Creatine Kinase 109 Troponin I 0.06 B-Type Natriuretic Peptide 615 Imaging Last Impressions Chest X-Ray 11/13/17 0000 Signed Impressions: Service Date/Time: Monday, November 13, 2017 19:20 - CONCLUSION: Bilateral basilar airspace disease. Tremaine Collins MD Physical Exam HEENT: PERRL; normocephalic; atraumatic; CHEST: CTA CARDIAC: RRR ABDOMEN: Soft, nondistended, nontender; no hepatosplenomegaly; bowel sounds are present in all four quadrants. EXTREMITIES: No clubbing, cyanosis, or edema. SKIN: no rash no jaundice [employer]AM[employer]: No focal deficits; alert and oriented times three. (Yumiko JonesP) Assessment and Plan Assessment: (1) Nausea & vomiting ICD Codes: R11.2 - Nausea with vomiting, unspecified Status: Acute Plan Nausea and vomiting fairly steady for the past 3 months she is affected her appetite and her eating habits. States that she has been able to eat cheese and crackers, otherwise minimal food. He's had no vomiting in the past 5 days but continues with nausea especially with drinking liquids or trying to eat food. Denies any melena or hematemesis. Never had a colonoscopy or EGD. Patient notes history of some chronic constipation at times but uses stool softeners and has no other issues. Patient denies any dysphasia. 11/13/17. Patient's nausea is much more controlled today with medications. No vomiting noted. Discussed endoscopy for Wednesday and plan a care. Patient is feeling much better today, sitting on side of the bed. No obvious bleeding hemoglobin 10.7. Anemia unspecified for now, possible chronic disease. 11/14/17 EGD tomorrow. still with nausea and burping. no vomiting. can tolerate water. no bleeding. no abd pain. No HH today Plan EGD tomorrow NPO after MN consider imaging Supportive care Monitor labs Further recommendations to follow Patient was seen per myself and Dr. Higgins, note was written on his behalf (Yumiko Jones) Physician Comments Patient seen and examined Agree with above Continue with current supportive care Monitor labs Plan for an EGD tomorrow 11/14/17 (Thien Higgins MD) Yumiko Jones Nov 14, 2017 16:14 Thien Higgins MD Nov 15, 2017 07:36
[2017-11-14] MEDS: FUROSEMIDE 20 MG/2 ML VIAL IV PUSH SCH (17:54)
[2017-11-14] MEDS: ATORVASTATIN 80 MG TAB PO SCH (20:16)
[2017-11-14] MEDS ORDERED: SODIUM CHLORID 0.9% 500 ML IV PRN (23:00)
[2017-11-14] MEDS ORDERED: POVIDONE IODINE 5% (ANTISEPSIS KIT) 4 APPLICATIONS EACH NARE PRN (23:00)
[2017-11-14] MEDS ORDERED: METOPROLOL TARTRATE 25 MG TAB PO PRN (23:00)
[2017-11-14] MEDS ORDERED: CHLORHEXIDINE GLUCONATE 2 % 1 PACK (2 CLOTHS) TOPICAL PRN (23:00)
[2017-11-14] MEDS ORDERED: LACTATED RINGER'S 1000 ML IV PRN (23:00)
[2017-11-15] VITALS (18 sets, daily range): BP systolic 138–162; BP diastolic 60–89; PULSE 66–77; RESP 14–18; TEMP 97.9–98.4; O2SAT 92–98
[2017-11-15] MEDS: MORPHINE SULFATE 2 MG/ML INJ IV PUSH PRN (03:36)
[2017-11-15 04:39] LABS: HEMATOCRIT 33.4 % (35.0-46.0); HEMOGLOBIN 11.3 GM/DL (11.6-15.3); MEAN CELL VOLUME 94.9 FL (80.0-100.0); MEAN CORPUSCULAR HEMOGLOBIN 32.1 PG (27.0-34.0); MEAN CORPUSCULAR HGB CONC 33.8 % (32.0-36.0); MEAN PLATELET VOLUME 8.7 FL (7.0-11.0); PLATELET COUNT 304 TH/MM3 (150-450); RED BLOOD COUNT 3.52 MIL/MM3 (4.00-5.30); RED CELL DISTRIBUTION WIDTH 15.3 % (11.6-17.2); WHITE BLOOD COUNT 7.5 TH/MM3 (4.0-11.0)
[2017-11-15 05:04] LABS: BICARBONATE 23.9 MEQ/L (21.0-32.0); CALCIUM 8.3 MG/DL (8.5-10.1); CREATININE 0.74 MG/DL (0.50-1.00); MAGNESIUM 1.9 MG/DL (1.5-2.5)
[2017-11-15] MEDS ORDERED: MAGNESIUM OXIDE 400 MG TAB PO ONE (08:15)
[2017-11-15] MEDS: INSULIN ASPART SUPPLEMENTAL SCALE SQ SCH ×2 (08:39→12:27)
[2017-11-15] MEDS ORDERED: MAGNESIUM OXIDE 400 MG TAB PO SCH (09:00)
[2017-11-15] MEDS ORDERED: SPIRONOLACTONE 25 MG TAB PO SCH ×2 (09:00)
[2017-11-15] MEDS: MAGNESIUM SULFATE 1 GM PREMIX 100 ML IV SCH ×2 (09:21→09:45)
[2017-11-15] MEDS: FUROSEMIDE 20 MG/2 ML VIAL IV PUSH SCH (09:30)
[2017-11-15] MEDS: RAMIPRIL 2.5 MG CAP PO SCH (09:30)
[2017-11-15] MEDS: PANTOPRAZOLE SODIUM 40 MG VIAL IV PUSH SCH (09:30)
[2017-11-15] MEDS: CLOPIDOGREL 75 MG TAB PO SCH (09:31)
[2017-11-15] MEDS: DOCUSATE SODIUM 50 MG/SENNA 8.6 MG TAB PO SCH (09:31)
[2017-11-15] MEDS: CARVEDILOL 3.125 MG TAB PO SCH (09:31)
[2017-11-15] MEDS: ASPIRIN 81 MG CHEW TAB PO SCH (09:32)
[2017-11-15] MEDS: SODIUM CHLORIDE 0.9% FLUSH 10 ML FLUSH IV FLUSH SCH (09:43)
--- NOTE | 2017-11-15 10:20 | HHI.PR ---
Subjective Remarks This is a pleasant 87 y/o Female with no significant Medical history who came to ER with severe nausea and vomit, nauseated for the last three months With Diagnosis of Non STEMI, coronary artery disease and syncope, had Bare Metal Stent of the mid left circumflex vessel and PCI bare stent of the distal left circumflex vessel. 11/11/17, Seen in her bedroom and she continues with Gastroesophageal symptoms, states was not seen by GI specialist wants to talk with GI specialist asked for consult. 11/13: Sable in her bedroom, seen by GI specialist, the patient never had an EGD or Colonoscopy, asked by GI for EGD for 11/15/17, The patient takes chronically pain medicines, suggested by GI specialist probable Gastroparesis secondary to pain medicines. seen by critical care nurse specialist doctor Arlene with diagnosis of CAD and NSTEMI recommended to continue Aspirin, Plavix, Lipitor 80 mg HS, Altace 2.5 mg daily, Coreg 3.125 mg BID, and okay to discharge and follow in his office 11/15/17. moderate risk for non cardiac procedure. 11/14: had some episode or volume overload yesterday night, given Lasix at this time improved condition awaiting for EGD for tomorrow morning and then will be discharged. 11/15: patient seen in her bedroom in the presence of relative, status post EGD and biopsy recommendations given by GI specialist as per critical care nurse specialist Doctor Tang okay to discharge now. scripts in chart to go home, no nausea, vomit or diarrhea. Objective Vital Signs Date Time Temp Pulse Resp B/P (MAP) Pulse Ox O2 Delivery O2 Flow Rate FiO2 11/15/17 09:24 96 21 11/15/17 06:09 70 11/15/17 05:18 70 11/15/17 04:00 69 11/15/17 03:25 93 Nasal Cannula 2.00 11/15/17 03:25 98.4 69 16 151/65 (93) 93 11/15/17 03:00 73 11/15/17 02:00 70 11/15/17 01:00 72 11/15/17 00:00 70 11/14/17 23:35 92 Nasal Cannula 2.00 11/14/17 23:35 98.4 82 17 131/72 (91) 92 11/14/17 23:00 78 11/14/17 22:00 74 11/14/17 21:00 74 11/14/17 20:47 93 21 11/14/17 20:00 78 11/14/17 19:50 98.3 80 18 169/72 (104) 92 11/14/17 19:50 92 Room Air 11/14/17 19:00 80 11/14/17 18:05 80 11/14/17 17:24 96 Room Air 11/14/17 17:14 77 11/14/17 16:06 74 11/14/17 16:00 98 Nasal Cannula 2.00 11/14/17 15:00 98.0 64 18 156/67 (96) 99 11/14/17 15:00 99 Nasal Cannula 3.00 11/14/17 15:00 68 11/14/17 14:00 73 11/14/17 13:00 73 11/14/17 12:00 72 11/14/17 11:00 98 Nasal Cannula 3.00 11/14/17 11:00 98.0 73 18 104/51 (68) 98 11/14/17 11:00 77 I/O 11/14/17 11/14/17 11/14/17 11/15/17 11/15/17 11/15/17 07:00 15:00 23:00 07:00 15:00 23:00 Intake Total 240 ml 240 ml Output Total 1150 ml 600 ml Balance -1150 ml -360 ml 240 ml Intake Oral 240 ml 240 ml Output Urine Total 1150 ml 600 ml # Voids 3 3 2 # Bowel Movements 0 Result Diagram: 11/15/17 0425 11/15/17 0425 Imaging Last Impressions Chest X-Ray 11/13/17 0000 Signed Impressions: Service Date/Time: Monday, November 13, 2017 19:20 - CONCLUSION: Bilateral basilar airspace disease. Tremaine Collins MD Procedures With Diagnosis of Non STEMI, coronary artery disease and syncope, had Bare Metal Stent of the mid left circumflex vessel and PCI bare stent of the distal left circumflex vessel. 11/11/17. EGD with Biopsy impression LA class A esophagitis, single ulcer ranging between 3-5 mm in size, follow in 7 to 10 days as outpatient, continue PPI and avoid NSAIDs. by Doctor Gadiel Wallis 11/15/17 Other Results Laboratory Tests Test 11/10/17 15:52 11/11/17 02:49 11/11/17 08:10 11/11/17 11:26 Lipase 188 U/L Prothrombin Time 10.7 SEC Prothromb Time International Ratio 1.1 RATIO Creatine Kinase MB 2.1 NG/ML Creatine Kinase MB % 0.8 % Activated Partial Thromboplast Time 32.9 SEC Test 11/12/17 04:27 11/13/17 19:02 11/13/17 19:29 11/15/17 04:25 Neutrophils (%) (Auto) 63.3 % Lymphocytes (%) (Auto) 20.9 % Monocytes (%) (Auto) 11.1 % Eosinophils (%) (Auto) 4.2 % Basophils (%) (Auto) 0.5 % Neutrophils # (Auto) 4.3 TH/MM3 Lymphocytes # (Auto) 1.4 TH/MM3 Monocytes # (Auto) 0.8 TH/MM3 Eosinophils # (Auto) 0.3 TH/MM3 Basophils # (Auto) 0.0 TH/MM3 CBC Comment DIFF FINAL Differential Comment Hemoglobin A1c 8.9 % Blood Urea Nitrogen 15 MG/DL 16 MG/DL Creatinine 0.74 MG/DL 0.74 MG/DL Random Glucose 152 MG/DL 115 MG/DL Total Protein 6.9 GM/DL Albumin 3.2 GM/DL Calcium Level 8.3 MG/DL 8.3 MG/DL Phosphorus Level 2.0 MG/DL Magnesium Level 2.0 MG/DL 1.9 MG/DL Alkaline Phosphatase 67 U/L Aspartate Amino Transf (AST/SGOT) 36 U/L Alanine Aminotransferase (ALT/SGPT) 30 U/L Total Bilirubin 0.4 MG/DL Direct Bilirubin 0.1 MG/DL Sodium Level 142 MEQ/L 141 MEQ/L Potassium Level 3.3 MEQ/L 3.8 MEQ/L Chloride Level 106 MEQ/L 109 MEQ/L Carbon Dioxide Level 28.2 MEQ/L 23.9 MEQ/L Indirect Bilirubin 0.3 MG/DL Triglycerides Level 153 MG/DL Cholesterol Level 218 MG/DL LDL Cholesterol 145 MG/DL HDL Cholesterol 42.6 MG/DL Cholesterol/HDL Ratio 5.11 RATIO Blood Gas Puncture Site RT RADIAL Blood Gas Patient Temperature 98.6 Blood Gas HCO3 22 mmol/L Blood Gas Base Excess -4.3 mmol/L Blood Gas Oxygen Saturation 94 % Arterial Blood pH 7.26 Arterial Blood Partial Pressure CO2 50 mmHg Arterial Blood Partial Pressure O2 93 mmHg Arterial Blood Oxygen Content 17.0 Vol % Arterial Blood Carboxyhemoglobin 0.7 % Arterial Blood Methemoglobin 1.3 % Blood Gas Hemoglobin 12.8 G/DL Oxygen Delivery Device Non-Rebreathing Mask Blood Gas Liter Flow 15 L/M Blood Gas Inspired Oxygen 100 % Total Creatine Kinase 109 U/L Troponin I 0.06 NG/ML White Blood Count 7.5 TH/MM3 Red Blood Count 3.52 MIL/MM3 Hemoglobin 11.3 GM/DL Hematocrit 33.4 % Mean Corpuscular Volume 94.9 FL Mean Corpuscular Hemoglobin 32.1 PG Mean Corpuscular Hemoglobin Concent 33.8 % Red Cell Distribution Width 15.3 % Platelet Count 304 TH/MM3 Mean Platelet Volume 8.7 FL Anion Gap 8 MEQ/L Estimat Glomerular Filtration Rate 75 ML/MIN B-Type Natriuretic Peptide 402 PG/ML Objective Remarks GENERAL: No acute distress. Obesity. SKIN: No rashes, ecchymoses or lesions. Cool and dry. HEAD: Atraumatic. Normocephalic. No temporal or scalp tenderness. EYES: Pupils equal round and reactive. Extraocular motions intact. No scleral icterus. No injection or drainage. ENT: Nose without bleeding, purulent drainage or septal hematoma. Throat without erythema, tonsillar hypertrophy or exudate. Uvula midline. Airway patent. NECK: Trachea midline. No JVD or lymphadenopathy. Supple, nontender, no meningeal signs. CARDIOVASCULAR: Regular rate and rhythm without murmurs, gallops, or rubs. RESPIRATORY: Clear to auscultation. Breath sounds equal bilaterally. No wheezes , rales, or rhonchi. GASTROINTESTINAL: Abdomen soft, non-tender, nondistended. No hepato-splenomegaly , or palpable masses. No guarding. MUSCULOSKELETAL: Extremities without clubbing, cyanosis, or edema. No joint tenderness, effusion, or edema noted. No calf tenderness. NEUROLOGICAL: Awake and alert. Cranial nerves II through XII intact. Motor and sensory grossly within normal limits. Normal speech. Medications and IVs Current Medications Medications (Trade) Dose Ordered Sig/Leonides Route Start Time Stop Time Status Last Admin (Tylenol) 650 mg Q4H PRN PO 11/10/17 21:15 11/11/17 00:08 (Zofran Inj) 4 mg Q6H PRN IVP 11/10/17 21:15 11/14/17 17:54 (Narcan Inj) 0.4 mg UNSCH PRN IV PUSH 11/10/17 21:15 (Tiffany-Colace) 1 tab BID PO 11/11/17 09:00 11/14/17 20:16 (Milk Of Magnesia Liq) 30 ml Q12H PRN PO 11/10/17 21:15 (Senokot) 17.2 mg Q12H PRN PO 11/10/17 21:15 (Dulcolax Supp) 10 mg DAILY PRN RECTAL 11/10/17 21:15 (Lactulose Liq) 30 ml DAILY PRN PO 11/10/17 21:15 (Morphine Inj) 2 mg Q3H PRN IV PUSH 11/10/17 21:15 11/15/17 03:36 (NS Flush) 2 ml UNSCH PRN IV FLUSH 11/11/17 13:45 (NS Flush) 2 ml BID IV FLUSH 11/11/17 21:00 11/15/17 09:43 (Aspirin Chew) 81 mg DAILY PO 11/12/17 09:00 11/14/17 09:55 (Plavix) 75 mg DAILY PO 11/12/17 09:00 11/14/17 09:56 Nitroglycerin/ Dextrose 250 ml @ 1.5 mls/hr TITRATE PRN IV 11/11/17 20:00 11/11/17 15:30 (Altace) 2.5 mg DAILY PO 11/13/17 09:00 11/15/17 09:30 (Coreg) 3.125 mg Q12HR PO 11/12/17 21:00 11/15/17 09:31 (Lipitor) 80 mg HS PO 11/12/17 21:00 11/14/17 20:16 (Protonix Inj) 40 mg Q12HR IV PUSH 11/12/17 16:30 11/15/17 09:30 (NovoLOG SUPPLEMENTAL SCALE) 1 ACHS SLIDING SCALE SQ 11/13/17 17:00 11/13/17 22:04 (Lasix Inj) 20 mg BID@09,18 IV PUSH 11/14/17 18:00 11/15/17 09:30 Lactated Ringer's 1,000 ml @ 30 mls/hr Q24H PRN IV 11/14/17 23:00 11/17/17 22:59 Sodium Chloride 500 ml @ 30 mls/hr [id number] PRN IV 11/14/17 23:00 11/17/17 22:59 (Lopressor) 25 mg MUSIC PROFESSOR PRN PO 11/14/17 23:00 11/17/17 22:59 (Betadine 5% Antisepsis Kit) 1 applic MUSIC PROFESSOR PRN EACH NARE 11/14/17 23:00 11/17/17 22:59 (Chlorhexidine 2% Cloth) 3 pack MUSIC PROFESSOR PRN TOPICAL 11/14/17 23:00 11/17/17 22:59 (Aldactone) 25 mg DAILY PO 11/15/17 09:00 11/15/17 09:30 (Aldactone) 25 mg BID@,18 PO 11/15/17 09:00 (Mag-Ox) 400 mg Q12HR PO 11/15/17 09:00 A/P Assessment and Plan 1. Non STEMI, coronary artery disease and syncope, had Bare Metal Stent of the mid left circumflex vessel and PCI bare stent of the distal left circumflex vessel. 11/11/17, recommended to continue Aspirin and Plavix. at this time continue Nitroglycerine. EKG shows normal sinus rhythm, pulse 77, with T-wave inversion in leads I- II and V2-V6, ST segment elevations or depressions Seen by critical care nurse specialist doctor Jacobs with diagnosis of CAD and NSTEMI recommended to continue Aspirin, Plavix, Lipitor 80 mg HS, Altace 2.5 mg daily, Coreg 3.125 mg BID, and okay to discharge and follow in his office . moderate risk for non cardiac procedure. added Aldactone 25 mg BID. 2. Nausea/vomiting/GERD symptoms for the last three months not improving, seen by GI specialist, the patient never had an EGD or Colonoscopy, EGD with Biopsy impression LA class A esophagitis, single ulcer ranging between 3-5 mm in size, follow in 7 to 10 days as outpatient, continue PPI and avoid NSAIDs. by Doctor Gadiel Wallis 11/15/17 3. MARY ANN Improved. 4. Hypokalemia replaced. 5. obesity strongly recommended diet and exercise. 6. DM II hemoglobin A1C 8.9, Poorly controlled, the patient is not taking this medicine from Home, asked for sliding scale, changed diet to ADA Diet. and asked for Diabetes Education. her blood sugar is been controlled with diet. will need to follow with PCP. 7. Respiratory insufficiency secondary to volume overload given Lasix at this time improved condition, continue low dose of Lasix IV by now critical care nurse specialist following. as per Physical Therapy Home with [facility] on discharge. DVT prophylaxis SCDs Discharge Planning Discharge Home with [facility] Andrew Sheikh MD Nov 15, 2017 10:20
[2017-11-15] MEDS ORDERED: MORPHINE SULFATE 2 MG/ML INJ IV PUSH PRN (10:30)
--- NOTE | 2017-11-15 10:41 | GIPROC ---
[facility] [address] [facility]. [facility], [address] EGD PROCEDURE REPORT EXAM DATE: 11/15/2017 PATIENT NAME: June Coronado MR #: [id number] BIRTHDATE: 1930 ATTENDING: Gadiel Wallis MD ORDER #: [id number] PARTICLE BOARD SUPERVISOR: Osmel Banegas and Hollie Church STATUS: inpatient INDICATIONS: The patient is a 87 yr old female here for an EGD due to epigastric abdominal pain, iron deficiency anemia, and nausea PROCEDURE PERFORMED: EGD w/ biopsy MEDICATIONS: Per Anesthesia and None. TOPICAL ANESTHETIC: CONSENT: The patient understands the risks and benefits of the procedure and understands that these risks include, but are not limited to: sedation, allergic reaction, infection, perforation and/or bleeding. Alternative means of evaluation and treatment include, among others: physical exam, x-rays, and/or surgical intervention. The patient elects to proceed with this endoscopic procedure. medical equipment was checked for proper function. Hand hygiene and appropriate measures for infection prevention was taken. After the risks, benefits and alternatives of the procedure were thoroughly explained, Informed consent was verified, confirmed and timeout was successfully executed by the treatment team. The patient was anesthetized with topical anesthesia and the Pentax [id number] endoscope was introduced through the mouth and advanced to the second portion of the duodenum. Retroflexed views revealed no abnormalities The gastroscope was then slowly withdrawn and removed. ESOPHAGUS: There was LA Class A esophagitis noted. A biopsy was performed using cold forceps. Sample sent for histology. DUODENUM: The duodenal mucosa appeared normal in the bulb and second portion of the duodenum. STOMACH: A single non-bleeding, shallow and clean-based ulcer ranging between 3-5 mm in size with surrounding edema was found in the prepyloric region of the stomach. Biopsies were taken at edge of the ulcer. ADVERSE EVENTS: There were no complications. IMPRESSIONS: 1. There was LA Class A esophagitis noted; biopsy was performed 2. Normal duodenal mucosa in the bulb and second portion of the duodenum 3. Single ulcer ranging between 3-5 mm in size was found in the prepyloric region of the stomach; biopsies were taken 4. Retroflexed views revealed no abnormalities RECOMMENDATIONS: 1. Await biopsy results. Biopsy results will not be ready for 7-10 days. If you don't hear from us in two weeks, call our office for biopsy results. 2. Continue PPI 3. Avoid NSAIDS PATIENT CONDITION: stable DISPOSITION: Inpatient REPEAT EXAM: Return 2 months EGD pending biopsy results Gadiel Wallis MD eSigned: Gadiel Wallis MD 11/15/2017 10:41 AM cc: PATIENT NAME: June Coronado MR#: [id number]
[2017-11-15] MEDS ORDERED: DO NOT ADM ANY ANTICOAGULANT DRUGS PRN (10:42)
[2017-11-15] MEDS ORDERED: *ONDANSETRON 4 MG VIAL PERIprocedural Use ONLY ONE (11:12)
[2017-11-15] MEDS ORDERED: PROPOFOL 200 MG/20 ML AMP IV ONE (12:00)
[2017-11-15] MEDS ORDERED: PHENYLEPH/NS 1000 MCG/10 ML SYR IV ONE (12:00)
[2017-11-15] MEDS ORDERED: LIDOCAINE HCL 1% PF 5 ML SYRINGE OTHER ONE (12:00)
--- NOTE | 2017-11-15 13:35 | PD.CARD.PN ---
Subjective Subjective Remarks alert in nad, denies chest pain s/p endoscopy Objective Medications Current Medications Medications (Trade) Dose Ordered Sig/Leonides Route Start Time Stop Time Status Last Admin (Tylenol) 650 mg Q4H PRN PO 11/10/17 21:15 11/11/17 00:08 (Zofran Inj) 4 mg Q6H PRN IVP 11/10/17 21:15 11/14/17 17:54 (Narcan Inj) 0.4 mg UNSCH PRN IV PUSH 11/10/17 21:15 (Tiffany-Colace) 1 tab BID PO 11/11/17 09:00 11/14/17 20:16 (Milk Of Magnesia Liq) 30 ml Q12H PRN PO 11/10/17 21:15 (Senokot) 17.2 mg Q12H PRN PO 11/10/17 21:15 (Dulcolax Supp) 10 mg DAILY PRN RECTAL 11/10/17 21:15 (Lactulose Liq) 30 ml DAILY PRN PO 11/10/17 21:15 (NS Flush) 2 ml UNSCH PRN IV FLUSH 11/11/17 13:45 (NS Flush) 2 ml BID IV FLUSH 11/11/17 21:00 11/15/17 09:43 (Aspirin Chew) 81 mg DAILY PO 11/12/17 09:00 11/14/17 09:55 (Plavix) 75 mg DAILY PO 11/12/17 09:00 11/14/17 09:56 Nitroglycerin/ Dextrose 250 ml @ 1.5 mls/hr TITRATE PRN IV 11/11/17 20:00 11/11/17 15:30 (Altace) 2.5 mg DAILY PO 11/13/17 09:00 11/15/17 09:30 (Coreg) 3.125 mg Q12HR PO 11/12/17 21:00 11/15/17 09:31 (Lipitor) 80 mg HS PO 11/12/17 21:00 11/14/17 20:16 (NovoLOG SUPPLEMENTAL SCALE) 1 ACHS SLIDING SCALE SQ 11/13/17 17:00 11/13/17 22:04 (Lasix Inj) 20 mg BID@,18 IV PUSH 11/14/17 18:00 11/15/17 09:30 Lactated Ringer's 1,000 ml @ 30 mls/hr Q24H PRN IV 11/14/17 23:00 11/17/17 22:59 Sodium Chloride 500 ml @ 30 mls/hr [id number] PRN IV 11/14/17 23:00 11/17/17 22:59 (Lopressor) 25 mg RECORDS TECH PRN PO 11/14/17 23:00 11/17/17 22:59 (Betadine 5% Antisepsis Kit) 1 applic RECORDS TECH PRN EACH NARE 11/14/17 23:00 11/17/17 22:59 (Chlorhexidine 2% Cloth) 3 pack RECORDS TECH PRN TOPICAL 11/14/17 23:00 11/17/17 22:59 (Aldactone) 25 mg BID@18 PO 11/15/17 09:00 (Mag-Ox) 400 mg DAILY@1100 PO 11/16/17 11:00 (Morphine Inj) 1 mg Q6HR PRN IV PUSH 11/15/17 10:30 12/13/17 11:00 Miscellaneous Information ALL NURSING DEPARTME... UNSCH PRN .XX 11/15/17 10:42 11/16/17 10:41 (Protonix) 40 mg Q12HR PO 11/15/17 21:00 Vital Signs / I&O Vital Signs Date Time Temp Pulse Resp B/P (MAP) Pulse Ox O2 Delivery O2 Flow Rate FiO2 11/15/17 13:00 75 11/15/17 12:00 77 11/15/17 11:00 97.9 66 16 153/69 (97) 98 11/15/17 11:00 98 Room Air 11/15/17 10:45 98.0 68 16 143/66 (91) 100 Nasal Cannula 3 11/15/17 09:24 96 21 11/15/17 09:00 70 11/15/17 08:00 74 11/15/17 08:00 98.2 75 18 162/60 (94) 92 11/15/17 08:00 92 Room Air 11/15/17 07:00 75 11/15/17 06:09 70 11/15/17 05:18 70 11/15/17 04:00 69 11/15/17 03:25 93 Nasal Cannula 2.00 11/15/17 03:25 98.4 69 16 151/65 (93) 93 11/15/17 03:00 73 11/15/17 02:00 70 11/15/17 01:00 72 11/15/17 00:00 70 11/14/17 23:35 92 Nasal Cannula 2.00 11/14/17 23:35 98.4 82 17 131/72 (91) 92 11/14/17 23:00 78 11/14/17 22:00 74 11/14/17 21:00 74 11/14/17 20:47 93 21 11/14/17 20:00 78 11/14/17 19:50 98.3 80 18 169/72 (104) 92 11/14/17 19:50 92 Room Air 11/14/17 19:00 80 11/14/17 18:05 80 11/14/17 17:24 96 Room Air 11/14/17 17:14 77 11/14/17 16:06 74 11/14/17 16:00 98 Nasal Cannula 2.00 11/14/17 15:00 98.0 64 18 156/67 (96) 99 11/14/17 15:00 99 Nasal Cannula 3.00 11/14/17 15:00 68 11/14/17 14:00 73 I/O 11/14/17 11/14/17 11/14/17 11/15/17 11/15/17 11/15/17 07:00 15:00 23:00 07:00 15:00 23:00 Intake Total 240 ml 240 ml Output Total 1150 ml 600 ml Balance -1150 ml -360 ml 240 ml Intake Oral 240 ml 240 ml Output Urine Total 1150 ml 600 ml # Voids 3 3 2 # Bowel Movements 0 Physical Exam GENERAL: SKIN: Warm and dry. HEAD: Normocephalic. EYES: No scleral icterus. No injection or drainage. NECK: Supple, trachea midline. No JVD or lymphadenopathy. CARDIOVASCULAR: Regular rate and rhythm without murmurs, gallops, or rubs. RESPIRATORY: Breath sounds equal bilaterally. No accessory muscle use. GASTROINTESTINAL: Abdomen soft, non-tender, nondistended. MUSCULOSKELETAL: No cyanosis, or edema. BACK: Nontender without obvious deformity. No CVA tenderness. Laboratory Laboratory Tests Test 11/15/17 04:25 White Blood Count 7.5 TH/MM3 Red Blood Count 3.52 MIL/MM3 Hemoglobin 11.3 GM/DL Hematocrit 33.4 % Mean Corpuscular Volume 94.9 FL Mean Corpuscular Hemoglobin 32.1 PG Mean Corpuscular Hemoglobin Concent 33.8 % Red Cell Distribution Width 15.3 % Platelet Count 304 TH/MM3 Mean Platelet Volume 8.7 FL Blood Urea Nitrogen 16 MG/DL Creatinine 0.74 MG/DL Random Glucose 115 MG/DL Calcium Level 8.3 MG/DL Magnesium Level 1.9 MG/DL Sodium Level 141 MEQ/L Potassium Level 3.8 MEQ/L Chloride Level 109 MEQ/L Carbon Dioxide Level 23.9 MEQ/L Anion Gap 8 MEQ/L Estimat Glomerular Filtration Rate 75 ML/MIN B-Type Natriuretic Peptide 402 PG/ML Assessment and Plan Problem List: (1) CAD (coronary artery disease) ICD Codes: I25.10 - Atherosclerotic heart disease of [place] coronary artery without angina pectoris (2) NSTEMI (non-ST elevated myocardial infarction) ICD Codes: I21.4 - Non-ST elevation (NSTEMI) myocardial infarction Assessment and Plan 1.) CAD/NSTEMI - pod #4 pci bms lcx and om, chest pain free, continue aspirin and plavix, continue lipitor 80 mg hs, altace 2.5 mg qd, coreg 3.125 mg bid; ok to dc from cv standpoint, d/w nurse and patient and her daughter, add aldactone 25 mg po bid, continue lasix 20 mg iv bid, f/u bnp/bmp in am 2.) moderate risk for noncardiac procedure Alistair Jacobs MD Nov 15, 2017 13:35
[2017-11-15] MEDS ORDERED: PLAV75TA29 PO (14:52)
[2017-11-15] MEDS ORDERED: CARA1TAB6 PO (14:52)
[2017-11-15] MEDS ORDERED: CARV3.125 PO (14:52)
[2017-11-15] MEDS ORDERED: ATOR80TA45 PO (14:52)
[2017-11-15] MEDS ORDERED: MAGN400T2 PO (14:52)
[2017-11-15] MEDS ORDERED: RAMI2.5C PO (14:52)
[2017-11-15] MEDS ORDERED: PANT40TA3 PO (14:52)
[2017-11-15] MEDS ORDERED: SPIR25 PO (14:52)
[2017-11-15] MEDS ORDERED: ASPI81 PO (14:52)
[2017-11-15] MEDS ORDERED: FURO1TAB62 PO (14:56)
--- NOTE | 2017-11-15 15:00 | HHI.DS ---
Discharge Summary Admission Date Nov 10, 2017 at 20:42 Discharge Date: Nov 15, 2017 Admitting Diagnosis Syncope; Hypokalemia; EKG Abnormality (1) NSTEMI (non-ST elevated myocardial infarction) ICD Code: I21.4 - Non-ST elevation (NSTEMI) myocardial infarction Diagnosis: Principal (2) Nausea & vomiting ICD Code: R11.2 - Nausea with vomiting, unspecified Diagnosis: Principal Status: Acute (3) Hypokalemia ICD Code: E87.6 - Hypokalemia Diagnosis: Principal Status: Acute (4) Diabetes mellitus ICD Code: E11.9 - Type 2 diabetes mellitus without complications Diagnosis: Principal Procedures With Diagnosis of Non STEMI, coronary artery disease and syncope, had Bare Metal Stent of the mid left circumflex vessel and PCI bare stent of the distal left circumflex vessel. 11/11/17. EGD with Biopsy impression LA class A esophagitis, single ulcer ranging between 3-5 mm in size, follow in 7 to 10 days as outpatient, continue PPI and avoid NSAIDs. by Doctor Gadiel Wallis 11/15/17 Brief History - From Admission 87-year-old female with no significant past medical history presents to the emergency department for evaluation of severe nausea and vomiting. The patient reports that she has had nausea for the past 3 months. She denies any associated abdominal pain. Endorses a nonbloody nonbilious emesis 3 over the past 2 days. She states that she has only been able to eat cheese and crackers and tea. She denies any chest pain or shortness of breath. No fever/chills. No diarrhea. No lateralizing signs/symptoms. Patient reports she takes no medication on a daily basis and has no past medical problems. CBC/BMP: 11/15/17 0425 11/15/17 0425 Significant Findings Laboratory Tests Test 11/13/17 05:13 11/13/17 19:02 11/13/17 19:29 11/15/17 04:25 Red Blood Count 3.38 MIL/MM3 (4.00-5.30) 3.52 MIL/MM3 (4.00-5.30) Hemoglobin 10.7 GM/DL (11.6-15.3) 11.3 GM/DL (11.6-15.3) Hematocrit 32.4 % (35.0-46.0) 33.4 % (35.0-46.0) Random Glucose 148 MG/DL (74-106) 115 MG/DL (74-106) Calcium Level 7.8 MG/DL (8.5-10.1) 8.3 MG/DL (8.5-10.1) Chloride Level 114 MEQ/L (98-107) 109 MEQ/L (98-107) Estimat Glomerular Filtration Rate 82 ML/MIN (>89) 75 ML/MIN (>89) Blood Gas Base Excess -4.3 mmol/L (-2-2) Arterial Blood pH 7.26 (7.380-7.420) Arterial Blood Partial Pressure CO2 50 mmHg (38-42) Troponin I 0.06 NG/ML (0.02-0.05) B-Type Natriuretic Peptide 615 PG/ML (0-100) 402 PG/ML (0-100) Imaging Last Impressions Chest X-Ray 11/13/17 0000 Signed Impressions: Service Date/Time: Monday, November 13, 2017 19:20 - CONCLUSION: Bilateral basilar airspace disease. Tremaine Collins MD PE at Discharge GENERAL: No acute distress. Obesity. SKIN: No rashes, ecchymoses or lesions. Cool and dry. HEAD: Atraumatic. Normocephalic. No temporal or scalp tenderness. EYES: Pupils equal round and reactive. Extraocular motions intact. No scleral icterus. No injection or drainage. ENT: Nose without bleeding, purulent drainage or septal hematoma. Throat without erythema, tonsillar hypertrophy or exudate. Uvula midline. Airway patent. NECK: Trachea midline. No JVD or lymphadenopathy. Supple, nontender, no meningeal signs. CARDIOVASCULAR: Regular rate and rhythm without murmurs, gallops, or rubs. RESPIRATORY: Clear to auscultation. Breath sounds equal bilaterally. No wheezes , rales, or rhonchi. GASTROINTESTINAL: Abdomen soft, non-tender, nondistended. No hepato-splenomegaly , or palpable masses. No guarding. MUSCULOSKELETAL: Extremities without clubbing, cyanosis, or edema. No joint tenderness, effusion, or edema noted. No calf tenderness. NEUROLOGICAL: Awake and alert. Cranial nerves II through XII intact. Motor and sensory grossly within normal limits. Normal speech. Hospital Course This is a pleasant 87 y/o Female with no significant Medical history who came to ER with severe nausea and vomit, nauseated for the last three months With Diagnosis of Non STEMI, coronary artery disease and syncope, had Bare Metal Stent of the mid left circumflex vessel and PCI bare stent of the distal left circumflex vessel. 11/11/17, Seen in her bedroom and she continues with Gastroesophageal symptoms, states was not seen by GI specialist wants to talk with GI specialist asked for consult. 11/13: Sable in her bedroom, seen by GI specialist, the patient never had an EGD or Colonoscopy, asked by GI for EGD for 11/15/17, The patient takes chronically pain medicines, suggested by GI specialist probable Gastroparesis secondary to pain medicines. seen by mgmt specialist doctor Jacobs with diagnosis of CAD and NSTEMI recommended to continue Aspirin, Plavix, Lipitor 80 mg HS, Altace 2.5 mg daily, Coreg 3.125 mg BID, and okay to discharge and follow in his office 11/15/17. moderate risk for non cardiac procedure. 11/14: had some episode or volume overload yesterday night, given Lasix at this time improved condition awaiting for EGD for tomorrow morning and then will be discharged. 11/15: patient seen in her bedroom in the presence of relative, status post EGD and biopsy recommendations given by GI specialist as per mgmt specialist Doctor Tang okay to discharge now. scripts in chart to go home, no nausea, vomit or diarrhea. Assessment and Plan 1. Non STEMI, coronary artery disease and syncope, had Bare Metal Stent of the mid left circumflex vessel and PCI bare stent of the distal left circumflex vessel. 11/11/17, recommended to continue Aspirin and Plavix. at this time continue Nitroglycerine. EKG shows normal sinus rhythm, pulse 77, with T-wave inversion in leads I- II and V2-V6, ST segment elevations or depressions Seen by mgmt specialist doctor Jacobs with diagnosis of CAD and NSTEMI recommended to continue Aspirin, Plavix, Lipitor 80 mg HS, Altace 2.5 mg daily, Coreg 3.125 mg BID, and okay to discharge and follow in his office . moderate risk for non cardiac procedure. added Aldactone 25 mg BID. 2. Nausea/vomiting/GERD symptoms for the last three months not improving, seen by GI specialist, the patient never had an EGD or Colonoscopy, EGD with Biopsy impression LA class A esophagitis, single ulcer ranging between 3-5 mm in size, follow in 7 to 10 days as outpatient, continue PPI and avoid NSAIDs. by Doctor Gadiel Wallis 11/15/17 3. MARY ANN Improved. 4. Hypokalemia replaced. 5. obesity strongly recommended diet and exercise. 6. DM II hemoglobin A1C 8.9, Poorly controlled, the patient is not taking this medicine from Home, asked for sliding scale, changed diet to ADA Diet. and asked for Diabetes Education. her blood sugar is been controlled with diet. will need to follow with PCP. 7. Respiratory insufficiency secondary to volume overload given Lasix at this time improved condition, continue low dose of Lasix IV by now mgmt specialist following. as per Physical Therapy Home with [facility] on discharge. DVT prophylaxis SCDs Discharge Planning Discharge Home with [facility]HC Pt Condition on Discharge: Good Discharge Disposition: Disch w/ Home Health Serv Discharge Time: > 30 minutes Discharge Instructions DIET: Follow Instructions for: Heart Healthy Diet, Diabetic Diet Activities you can perform: Regular-No Restrictions Andrew Sheikh MD Nov 15, 2017 15:00
--- NOTE | 2017-11-15 19:24 | ECHRPT ---
Indication: Heart Failure CONCLUSIONS The left ventricular systolic function is normal with an estimated ejection fraction in the range of 60-65%. Mild concentric left ventricular hypertrophy. Normal left ventricular size. Mitral annular calcification is present. Trace mitral valve regurgitation. Mild thickening of the aortic valve leaflets. Trace aortic valve regurgitation. There is mild tricuspid valve regurgitation. The estimated pulmonary arterial pressure is 43 mmHg. BP: 151 / 65 HR: 69 Rhythm: Sinus Technical Quality:Fair FINDINGS LEFT VENTRICLE The left ventricular systolic function is normal with an estimated ejection fraction in the range of 60-65%. Mild concentric left ventricular hypertrophy. Normal left ventricular size. RIGHT VENTRICLE Normal right ventricular size and systolic function. LEFT ATRIUM The left atrial size is normal. RIGHT ATRIUM The right atrial size is normal. ATRIAL SEPTUM Normal atrial septal thickness without atrial level shunting by limited color doppler interrogation. AORTA The aortic root and proximal ascending aorta are normal in size on limited imaging. MITRAL VALVE Mitral annular calcification is present. Trace mitral valve regurgitation. AORTIC VALVE Trileaflet aortic valve. Mild thickening of the aortic valve leaflets. Trace aortic valve regurgitation. TRICUSPID VALVE Structurally normal tricuspid valve. There is mild tricuspid valve regurgitation. The estimated pulmonary arterial pressure is 43mmHg. PULMONARY VALVE The pulmonary valve is not well visualized. VESSELS The inferior vena cava is normal in size. PERICARDIUM No pericardial effusion. Ciera Tang MD, FACC (Electronically Signed) Final Date:15 November 2017 19:22
[2017-11-15] MEDS ORDERED: PANTOPRAZOLE SOD 40 MG DELAYED RELEASE TAB PO SCH (21:00)
[2017-11-16] MEDS ORDERED: MAGNESIUM OXIDE 400 MG TAB PO SCH (11:00)
--- NOTE | 2017-11-16 14:02 | HHI.FF ---
Face to Face Verification Diagnosis: (1) NSTEMI (non-ST elevated myocardial infarction) (2) Diabetes mellitus (3) CAD (coronary artery disease) (4) Gastric ulcer Physical Therapy Order: Evaluate and Treat, Improve ambulation, Strength and gait training Home Health Nursing Order: Medical education Signs/symptoms of disease process Diabetic education CHF education Oxygen administration education Medication education-adverse effect Nursing assessment with vital signs I have seen patient June Coronado on 11/16/17. My clinical findings support the need for the requested home health care services because: Ltd mobility - disease progression I certify that my clinical findings support that this patient is homebound because: Unsafe to leave home unassisted Andrew Sheikh MD Nov 16, 2017 14:02
== END 2017-11-15 17:00 | disposition home health service (06) | DRG 249 ==
LOC: NEPD 13:55 → NEDA 20:42 → HOCA 11-11 01:50 → HCIS 11-11 13:37 → HCPC 11-11 16:15
PROVIDERS: ADMIT Internal Medicine; ATTEND Internal Medicine
PROC: 4A023N7 Measurement of Cardiac Sampling and Pressure, Left Heart, Percutaneous Approach (ICD-10-PCS; 2017-11-11)
PROC: B2111ZZ Fluoroscopy of Multiple Coronary Arteries using Low Osmolar Contrast (ICD-10-PCS; 2017-11-11)
PROC: B2151ZZ Fluoroscopy of Left Heart using Low Osmolar Contrast (ICD-10-PCS; 2017-11-11)
PROC: 02703EZ Dilation of Coronary Artery, One Artery with Two Intraluminal Devices, Percutaneous Approach (ICD-10-PCS; principal; 2017-11-11 13:45)
PROC: 5A09357 Assistance with Respiratory Ventilation, Less than 24 Consecutive Hours, Continuous Positive Airway Pressure (ICD-10-PCS; 2017-11-13)
PROC: 0DB38ZX Excision of Lower Esophagus, Via Natural or Artificial Opening Endoscopic, Diagnostic (ICD-10-PCS; 2017-11-15)
PROC: 0DB68ZX Excision of Stomach, Via Natural or Artificial Opening Endoscopic, Diagnostic (ICD-10-PCS; 2017-11-15)
DX: I21.4 Non-ST elevation (NSTEMI) myocardial infarction (principal); N17.9 Acute kidney failure, unspecified; E11.22 Type 2 diabetes mellitus with diabetic chronic kidney disease; K25.9 Gastric ulcer, unspecified as acute or chronic, without hemorrhage or perforation; E11.65 Type 2 diabetes mellitus with hyperglycemia; E87.1 Hypo-osmolality and hyponatremia; E87.70 Fluid overload, unspecified; E87.6 Hypokalemia; R55 Syncope and collapse; I25.10 Atherosclerotic heart disease of native coronary artery without angina pectoris; K21.0 Gastro-esophageal reflux disease with esophagitis; N18.9 Chronic kidney disease, unspecified; R79.89 Other specified abnormal findings of blood chemistry; E66.9 Obesity, unspecified; I16.0 Hypertensive urgency; R00.0 Tachycardia, unspecified; F41.9 Anxiety disorder, unspecified; Z68.33 Body mass index [BMI] 33.0-33.9, adult; Z86.73 Personal history of transient ischemic attack (TIA), and cerebral infarction without residual deficits
CPT/HCPCS: 36600; 71045; 76937; 80048; 80053; 80061; 80076; 82550; 82552; 82805; 82948; 83036; 83690; 83735; 83880; 84100; 84484; 85002; 85025; 85027; 85610; 85730; 88305; 88312; 92928; 93005; 93306; 93458; 96365; 99152; 99153; C1769; C1887; C1893; C9113; J0360; J1644; J1815; J1940; J2060; J2250; J2270; J2370; J2405; J3010; J3246; J3475; J3480; J7030; Q9967